=== PATIENT | male | born 1970 | race Caucasian/White ===

== ENCOUNTER 2019-12-12 07:09 | Inpatient (IN) ==
[2019-12-12] MEDS: NS 1,000 ML IV ONE ×2 (07:30→08:30)
[2019-12-12] MEDS ORDERED: NS 1,000 ML IV ONE ×2 (07:42→09:03)
[2019-12-12 07:53] LABS: HEMATOCRIT 51.3 % (42.0-52.0); HEMOGLOBIN 16.2 g/dL (14.0-18.0); MCH 26.8 PG (27-31); MCHC 31.6 g/dL (33-37); MCV 84.8 FL (81-99); MPV 10.2 FL (7.4-10.4); PLT 193 X1000 (130-400); RBC 6.05 XMIL (4.7-6.1); RDW 13.5 % (11.5-14.5); WBC 3.38 X1000 (4.8-10.8)
[2019-12-12 07:54] LABS: BASO# 0.01 X1000 (0.0-0.2); BASO% 0.3 % (0.0-0.8); EOS# 0.03 X1000 (0.0-0.7); EOS% 0.9 % (0.0-10.0); IMM GRAN# 0.02 X1000 (0.0-0.04); IMM GRAN% 0.6 % (0.0-0.5); LYMPH# 0.45 X1000 (1.2-3.4); LYMPH% 13.3 % (20.5-51.1); MONO% 8.9 % (1.7-9.3); NEUT# 2.57 X1000 (1.4-6.5)
[2019-12-12] MEDS ORDERED: NS 500 ML IV ONE (07:54)
--- NOTE | 2019-12-12 08:00 | PROVIDER DOCUMENTATION ---
HPI-Fever - General Chief Complaint: General Adult Stated Complaint: FLU SX Time Seen by Provider: 12/12/19 07:44 Source: patient, family Allergies/Adverse Reactions: Patient Allergies Allergy/AdvReac Type Severity Reaction Status Date / Time No Known Allergies Allergy Verified 12/12/19 07:23 Home Medications: Home Medication List Medication Instructions Recorded Confirmed Last Taken Type NK [No Home Medications] 12/12/19 12/12/19 Unknown History - History of Present Illness-Fever Nature of Presenting Problem: awoke Sun with scratchy throat, cough, nausea, had fever as well. Went to on Tuesday, flu swab ng, but had sx, was dx as flu, placed on Xofluza, decongestant. Continued with fever, body aches on Tue, , fever remained low grade, even with tylenol/advil. Last night he had syncope, vomited 2x, had diarrhea. Presents @ triage with hypotension. No CP, sl SOB. gen body aches.. Nothing makes better nor worse. Review of Systems - Adult - REVIEW OF SYSTEMS - ADULT Constitutional: reports: see HPI Eyes: reports: no symptoms reported Ears, Nose, Mouth & Throat: reports: see HPI Cardiovascular: reports: no symptoms reported Respiratory: reports: see HPI Gastrointestinal: reports: see HPI Genitourinary: reports: no symptoms reported Musculoskeletal: reports: see HPI Integumentary: reports: no symptoms reported Neurological: reports: see HPI Psychiatric: reports: no symptoms reported Endocrine: reports: no symptoms reported Hematologic/Lymphatic: reports: no symptoms reported Allergic/Immunologic: reports: no symptoms reported Past History - Adult - PAST MEDICAL HISTORY-ADULT Review of Records: reports: Medications Reviewed Major Childhood Illnesses: reports: denies history Cardiovascular: reports: denies history Respiratory: reports: denies history Gastrointestinal: reports: denies history Obstetrical/Gynecological: reports: denies history Genitourinary: reports: denies history Musculoskeletal: reports: denies history Neurological: reports: denies history Psychiatric: reports: denies history Endocrine/Immune: reports: denies history - PRIOR SURGERIES/PROCEDURES Surgical/Procedure History: reports: none - SOCIAL HISTORY Smoking: denies Physical Exam-General - PHYSICAL EXAM-ADULT Initial Vital Signs Reviewed: Yes - CONSTITUTIONAL General Appearance: alert, mild distress - EYES Eyes: PERRL/EOMI, pink conjunctivae - HEAD, EARS, NOSE, MOUTH & THROAT HENMT: normocephalic/atraumatic, moist mucous membranes, normal ENT inspection, pharynx normal - NECK Neck: non-tender, full range of motion, supple - RESPIRATORY Respiratory: chest non-tender, no respiratory distress, no accessory muscle use, rales (L>R) - CARDIOVASCULAR Cardiovascular: regular rate, rhythm, no edema, no gallop, no murmur - GASTROINTESTINAL (ABDOMEN) Abdominal Exam: normal bowel sounds, non tender, soft - MUSCULOSKELETAL Back Exam: normal inspection, other (deferred due to BP) Extremity: normal range of motion, non-tender, normal inspection - SKIN Integumentary: normal turgor, warm/dry, other (sl pale) - NEUROLOGIC Neurologic: web design intern II-XII nml as tested, grossly normal, no motor/sensory deficits - PSYCHIATRIC Psych/Mental Status: normal mood/affect, normal thought content, normal thought process, oriented x 3 Progress - PLAN OF CARE/RESULTS Progress/Plan/Lab Results: Vital Signs - 8 hr 12/12/19 07:17 12/12/19 07:24 12/12/19 07:30 Temperature 98.2 F Pulse Rate 94 H 92 H Respiratory Rate 18 22 Blood Pressure 79/42 102/62 O2 Sat by Pulse Oximetry 92 L 92 L 12/12/19 09:30 12/12/19 09:40 12/12/19 09:42 Temperature 101.6 F H Pulse Rate 114 H 111 H Respiratory Rate 26 H 17 Blood Pressure 132/70 O2 Sat by Pulse Oximetry 95 90 L 12/12/19 09:59 Temperature Pulse Rate Respiratory Rate Blood Pressure O2 Sat by Pulse Oximetry 100 Laboratory Results - last 24 hr 12/12/19 12/12/19 12/12/19 07:40 07:40 08:25 WBC 3.38 L RBC 6.05 Hgb 16.2 Hct 51.3 MCV 84.8 MCH 26.8 L MCHC 31.6 L RDW Std Deviation 13.5 Plt Count 193 MPV 10.2 Immature Gran % (Auto) 0.6 H Neut % (Auto) 76.0 H Lymph % (Auto) 13.3 L [place] % (Auto) 8.9 Eos % (Auto) 0.9 Baso % (Auto) 0.3 Immature Gran # (Auto) 0.02 Neut # (Auto) 2.57 Lymph # (Auto) 0.45 L [place] # (Auto) 0.30 Eos # (Auto) 0.03 Baso # (Auto) 0.01 Segmented Neutrophils 71 Lymphocytes 16 L Monocytes 12 H Eosinophils 1 PT INR PTT (Actin FS) Sodium 144 Potassium 4.3 Chloride 103 Carbon Dioxide 19 L Anion Gap 23 BUN 23 H Creatinine 1.9 H Estimated GFR/1.73 m2 38 BUN/Creatinine Ratio 12 Glucose 145 H Calculated Osmolality 293 Calcium 8.7 L Magnesium Total Bilirubin 0.80 AST 53 H ALT 69 H Alkaline Phosphatase 68 Creatine Kinase Creatine Kinase Index CK-MB (CK-2) Troponin T High Sens Total Protein 6.9 Albumin 3.9 Globulin 3.0 Albumin/Globulin Ratio 1.0 Plasma Lactate Influenza A (Rapid) POSITIVE A Influenza B (Rapid) POSITIVE A 12/12/19 12/12/19 12/12/19 08:25 08:25 08:25 WBC RBC Hgb Hct MCV MCH MCHC RDW Std Deviation Plt Count MPV Immature Gran % (Auto) Neut % (Auto) Lymph % (Auto) [place] % (Auto) Eos % (Auto) Baso % (Auto) Immature Gran # (Auto) Neut # (Auto) Lymph # (Auto) [place] # (Auto) Eos # (Auto) Baso # (Auto) Segmented Neutrophils Lymphocytes Monocytes Eosinophils PT 13.2 INR 0.95 PTT (Actin FS) 26.9 Sodium Potassium Chloride Carbon Dioxide Anion Gap BUN Creatinine Estimated GFR/1.73 m2 BUN/Creatinine Ratio Glucose Calculated Osmolality Calcium Magnesium 1.3 L Total Bilirubin AST ALT Alkaline Phosphatase Creatine Kinase 209 H Creatine Kinase Index 1.0 CK-MB (CK-2) 2.03 Troponin T High Sens 10 Total Protein Albumin Globulin Albumin/Globulin Ratio Plasma Lactate Influenza A (Rapid) Influenza B (Rapid) 12/12/19 08:25 WBC RBC Hgb Hct MCV MCH MCHC RDW Std Deviation Plt Count MPV Immature Gran % (Auto) Neut % (Auto) Lymph % (Auto) [place] % (Auto) Eos % (Auto) Baso % (Auto) Immature Gran # (Auto) Neut # (Auto) Lymph # (Auto) [place] # (Auto) Eos # (Auto) Baso # (Auto) Segmented Neutrophils Lymphocytes Monocytes Eosinophils PT INR PTT (Actin FS) Sodium Potassium Chloride Carbon Dioxide Anion Gap BUN Creatinine Estimated GFR/1.73 m2 BUN/Creatinine Ratio Glucose Calculated Osmolality Calcium Magnesium Total Bilirubin AST ALT Alkaline Phosphatase Creatine Kinase Creatine Kinase Index CK-MB (CK-2) Troponin T High Sens Total Protein Albumin Globulin Albumin/Globulin Ratio Plasma Lactate 5.5 H* Influenza A (Rapid) Influenza B (Rapid) Orders Category Date Time Status Admit - [facility] Routine AdmDCTranf 12/12/19 10:31 Active Activity - Strict Bedrest ORDERED Care 12/12/19 10:31 Active Apply Mechanical Device [QM] ORDERED Care 12/12/19 10:31 Active Cardiac Monitoring DIRECTED Care 12/12/19 07:36 Active Cardiac Monitoring DIRECTED Care 12/12/19 07:53 Active DVT/PE Risk Assess/Protocol [QM] ORDERED Care 12/12/19 10:31 Active Elevate Head of Bed DIRECTED Care 12/12/19 10:31 Active Encourage Fluids DIRECTED Care 12/12/19 10:31 Active IV Insertion ORDERED Care 12/12/19 07:53 Completed IV Insertion ORDERED Care 12/12/19 07:55 Completed Intake and Output-Strict ORDERED Care 12/12/19 07:55 Active Intake and Output-Strict Q 8-HR ASSESS Care 12/12/19 10:31 Active Notify MD of + Sepsis Screen NOW Care 12/12/19 07:53 Active Notify Physician As Ordered Care 12/12/19 07:53 Active Nursing- Assist w/ IS as order ORDERED Care 12/12/19 10:36 Active Oxygen Therapy- ED Nursing DIRECTED Care 12/12/19 07:36 Active Repeat Vital Signs .Blood Pressure Care 12/12/19 07:55 Active Repeat Vital Signs .Heart Rate Care 12/12/19 07:55 Active Repeat Vital Signs .Oxygen Saturation Care 12/12/19 07:55 Active Repeat Vital Signs .Respiratory Rate Care 12/12/19 07:55 Active Repeat Vital Signs .Temp Care 12/12/19 07:55 Active Saline Loc NOW Care 12/12/19 07:36 Active Turn, Cough and Deep Breathe Q2HR Care 12/12/19 10:31 Active Vital Signs Order ROUTINE Care 12/12/19 10:31 Active CHEST-PORTABLE [RAD] Routine Exams 12/13/19 06:00 Ordered cxr [CHEST-PORTABLE] [RAD] Stat Exams 12/12/19 07:37 Completed ABG [RESP] Routine Lab 12/12/19 10:45 Ordered BLOOD CULTURE [BLDCUL] Stat Lab 12/12/19 07:55 Ordered CBC WITH DIFF [HEME] Routine Lab 12/13/19 06:00 Ordered CBC WITH DIFF [HEME] Stat Lab 12/12/19 07:40 Completed CK PROFILE [SP CHEM] Stat Lab 12/12/19 08:25 Completed CMP [COMPREHENSIVE METABOLIC PANEL] [CHEM] Stat Lab 12/12/19 08:25 Completed COMPREHENSIVE METABOLIC PANEL [CHEM] Routine Lab 12/13/19 06:[address] Stat Lab 12/12/19 07:40 Completed LACTATE, PLASMA [CHEM] Lab 12/12/19 08:25 Completed LACTATE, PLASMA [CHEM] Lab 12/12/19 11:02 Ordered LACTATE, PLASMA [CHEM] Lab 12/12/19 14:00 Uncollected MAGNESIUM [CHEM] Routine Lab 12/13/19 06:00 Ordered MAGNESIUM [CHEM] Stat Lab 12/12/19 08:25 Completed PROTIME WITH INR [COAG] Stat Lab 12/12/19 08:25 Completed PTT [COAG] Stat Lab 12/12/19 08:25 Completed SPUTUM CULTURE WITH GRAM STAIN [RM] Routine Lab 12/12/19 10:35 Uncollected TROPONIN T HIGH SENSITIVITY Stat Lab 12/12/19 08:25 Completed UA [URINALYSIS] [URINALYSIS] Routine Lab 12/12/19 11:02 Uncollected URINALYSIS W/POSS RFLX CULT [URINALYSIS] Stat Lab 12/12/19 07:53 Uncollected 0.9% Sodium Chloride Inj [Ns] 1,000 ml Med 12/12/19 10:45 Active IV 100 mls/hr 0.9% Sodium Chloride Inj [Ns] 1,000 ml Med 12/12/19 07:42 Discontinued IV 999 mls/hr 0.9% Sodium Chloride Inj [Ns] 1,000 ml Med 12/12/19 09:03 Discontinued IV 999 mls/hr 0.9% Sodium Chloride Inj [Ns] 1,000 ml Med 12/12/19 07:54 Discontinued IV As Directed mls/hr 0.9% Sodium Chloride Inj [Ns] 500 ml Med 12/12/19 07:54 Discontinued IV 999 mls/hr Acetaminophen [Tylenol] Med 12/12/19 10:31 Active 650 mg PO Q4H PRN PRN Albuterol 2.5MG/Ipratrop 0.5MG [Duoneb (A & A)] Med 12/12/19 09:11 Discontinued 3 ml INH NOW ONE Albuterol 2.5MG/Ipratrop 0.5MG [Duoneb (A & A)] Med 12/12/19 10:41 Active 3 ml INH Q4H PRN PRN Albuterol 2.5MG/Ipratrop 0.5MG [Duoneb (A & A)] Med 12/12/19 15:00 Active 3 ml INH [id number] CefEPIME [Maxipime] 1 gm Med 12/12/19 09:10 Discontinued 0.9% Sodium Chloride Inj [Ns] 50 ml IV NOW Furosemide [Lasix] Med 12/12/19 09:17 Discontinued 20 mg IV NOW ONE Ketorolac [Toradol] Med 12/12/19 09:15 Discontinued 15 mg IV NOW ONE Magnesium Sulfate 2 gm/S.w.i. Med 12/12/19 10:43 Active 2 gm in 50 ml IV NOW Piperacillin/Tazobactam [Zosyn] 3.375 gm Med 12/12/19 10:45 Active 0.9% Sodium Chloride Inj [Ns] 50 ml IV Q6H Vancomycin 1 gm/Ns Med 12/12/19 09:04 Discontinued 1 gm in 250 ml IV NOW Aerosol Treatments Routine Ot 12/12/19 09:11 Completed Aerosol Treatments Routine Ot 12/12/19 10:42 Active Aerosol Treatments Stat Ot 12/12/19 09:11 Completed Aerosol Treatments Stat Ot 12/12/19 10:42 Active BIPAP Stat Ot 12/12/19 09:15 Active Incentive Spirometer Routine Ot 12/12/19 10:31 Active Oxygen Device Stat Ot 12/12/19 07:53 Active Pulse Oximetry Routine Ot 12/12/19 10:31 Active EKG [EKG] Stat Ther 12/12/19 07:37 Draft Transfer/Admit Order [TRANSFER] Routine Transfer 12/12/19 10:43 Ordered Result Diagrams: 12/12/19 07:40 12/12/19 08:25 - REASSESSMENT Reassessment #1 Time Reassessed: 10:15 (breathing easier on bipap, skin color better) Status: improving (skin color improving) - EKG 1 Time of EKG reading by physician:: 07:44 EKG Read and Signed by:: Jalil Jack EKG Interpretation (*Must complete 3 of following elements*): Abnormal Rate: 96 Rhythm: NSR QRS: Q Waves present (small, infer leads) ST Wave: depressed (inverted T waves in lat leads) - XRAY 1 XRAY Study: Chest Impression: Abnormal (EXAM: CHEST-PORTABLE HISTORY: cough, sob TECHNIQUE: S tali view of the chest was performed portably. COMPARISON: None. FINDINGS: The cardiomediastinal silhouette is within normal limits. The pulmonary vasculature is not congested. There is a diffuse alveolar infiltrate throughout the left lung. There may be a small effusion. IMPRESSION: Diffuse alveolar infiltrate left lung. Electronically signed by Doretha Person 12/12/2019 8:38 AM 12/12/19 0838 Interpreting Physician: Doretha Person MD Dictated Date/Time: 12/12/19 0837 cc: Jalil Jack MD; Ambika Gomez MD) - CONSULTS/PCP/HOSPITALIST Notification #1 *Consult/PCP/Hospitalist*: Jose Time Discussed: 09:04 Consult Disposition: Will see in ED, Admit Departure - Departure Date of Disposition Decision: 12/12/19 Time of Disposition Decision: 09:04 DIAGNOSIS: Influenza A, Influenza B, Septic shock Pneumonia involving left lung Qualifiers: Pneumonia type: due to unspecified organism Lung location: unspecified part of lung Qualified Code(s): J18.9 - Pneumonia, unspecified organism Respiratory failure Qualifiers: Chronicity: acute Disposition: ADMITTED INPATIENT 09 Certified Medical Emergency: Emergent Condition: Stable Additional Instructions: ED Follow Up Instructions: You have been treated by a care provider in the Emergency Department. These instructions are being provided to you so you can have an understanding of how to care for yourself upon discharge. Upon discharge from the Emergency Department, you are responsible for making arrangements for follow-up care by a physician of your choice. Take all prescribed medications as directed. Return to the Emergency Department immediately for any new or worsening symptoms. You may call the Physician Referral phone number at [phone] to obtain a list of Physicians who are taking new patients. Referrals and Follow-Ups: Ambika Gomez MD [Primary Care Provider] - - Critical Care Note This patient required my direct & personal management of CC.: Yes Total Time (mins): 40 Critical Care Statement: This patient required my direct personal management to treat or rule out processes, the absence of which, could potentiallly result in sudden, clinically significant life or limb threatening deterioration. Attestation - Physician/ JOSHUA Attestation Patient care was provided by Advanced Practice Provider:: No The physician spent face to face time with patient:: Yes Advanced Practice Provider documentation review:: Supervising physician onsite and consulted in the evaluation and care of this patient. The physician did have a face to face encounter with the patient. Sepsis: Tissue Perfusion Assmt - Physical Exam Assessment Date: 12/12/19 Time Assessment Initialized: 09:07 Vital Signs: Last Vital Signs Temp 101.6 F H 12/12/19 09:42 Pulse 111 H 12/12/19 09:40 Resp 17 12/12/19 09:40 BP 132/70 12/12/19 09:40 Pulse Ox 100 12/12/19 09:59 Height 5 ft 8 in Weight 84.368 kg Lung Sounds: rhonchi (bilat) Heart Sounds: Regular Capillary Refill Time: Less Than 2 Seconds Peripheral Pulse Evaluation: radial (R): 2+ Skin Exam: pallor (sl grayish) - Impression Impression: Tissue Perfusion Adequate - Plan Plan: See Orders (breathing sl more labored, will place on BiPap, give small dose lasix)
[2019-12-12 08:10] LABS: INFLUENZA A POSITIVE (NEGATIVE); INFLUENZA B POSITIVE (NEGATIVE)
--- NOTE | 2019-12-12 08:31 | EKG Report ---
Test Performed on : 12/12/2019 07:36:05 AM Test Reason : hypotensive, cp Blood Pressure : / mmHG Vent. Rate : 096 BPM Atrial Rate : 096 BPM P-R Int : 124 ms QRS Dur : 096 ms QT Int : 342 ms P-R-T Axes : 022 -04 038 degrees QTc Int : 432 ms Normal sinus rhythm. Possible Inferior infarct , age undetermined T wave abnormality, consider lateral ischemia Abnormal ECG No previous ECGs available Unconfirmed Result
[2019-12-12 08:36] LABS: INR 0.95; PROTIME 13.2 Seconds (11.0-16.0)
[2019-12-12 08:37] LABS: PTT 26.9 Seconds (22.3-41.8)
[2019-12-12 08:39] LABS: EOS 1 % (1-10); LYMPHS 16 % (21-51); MONO 12 % (1-9); SEGS 71 % (42-75)
--- NOTE | 2019-12-12 08:41 | Diag Imaging Result Doc PS360 ---
EXAM: CHEST-PORTABLE HISTORY: cough, sob TECHNIQUE: Single view of the chest was performed portably. COMPARISON: None. FINDINGS: The cardiomediastinal silhouette is within normal limits. The pulmonary vasculature is not congested. There is a diffuse alveolar infiltrate throughout the left lung. There may be a small effusion. IMPRESSION: Diffuse alveolar infiltrate left lung. Electronically signed by Doretha Person 12/12/2019 8:38 AM
[2019-12-12 08:56] LABS: MAGNESIUM 1.3 mg/dL (1.5-2.7)
[2019-12-12 08:57] LABS: ALBUMIN 3.9 g/dL (3.5-5.0); CALCIUM 8.7 mg/dL (8.8-10.2); CREATININE 1.9 mg/dL (0.7-1.2); POTASSIUM 4.3 mmol/L (3.5-5.1); TOTAL BILIRUBIN 0.8 mg/dL (0.20-1.00); TOTAL PROTEIN 6.9 g/dL (6.3-8.3)
[2019-12-12] MEDS ORDERED: VANCOMYCIN 1 GM/NS 1 GM/250 ML IVPB IV ONE ×2 (09:04→11:45)
[2019-12-12] MEDS ORDERED: MAXIPIME 1 GM in NS 50 ML IV ONE (09:10)
[2019-12-12] MEDS ORDERED: DUONEB (A & A) INH ONE (09:11)
[2019-12-12] MEDS ORDERED: TORADOL IV ONE (09:15)
[2019-12-12] MEDS ORDERED: LASIX IV ONE (09:17)
[2019-12-12 09:54] LABS: CK-MB 2.03 ng/mL (0.0-5.0)
[2019-12-12] MEDS ORDERED: DUONEB (A & A) INH PRN ×2 (10:41→21:08)
[2019-12-12] MEDS ORDERED: MAGNESIUM SULFATE 2 GM/S.W.I. 2 GM/50 ML IVPB IV ONE (10:43)
[2019-12-12] MEDS ORDERED: NS 1,000 ML IV SCH ×2 (10:45→17:50)
[2019-12-12] MEDS: TYLENOL PO PRN ×3 (11:02→22:22)
[2019-12-12] MEDS: ZOSYN 3.375 GM in NS 50 ML IV SCH ×2 (11:09→18:00)
[2019-12-12] MEDS ORDERED: SODIUM CHLORIDE 0.9% INJ SCH (11:15)
[2019-12-12] MEDS ORDERED: PROTONIX IV SCH (11:15)
[2019-12-12 11:20] LABS: BE -7.4 mmoll (-3.0-3.0); BLOOD TYPE ARTERIAL; HCO3-(ACT) 18.9 mmoll (20.0-26.0); METHB 1.2 % (0.0-1.5); O2(CT) 19.5 mL/dL (15.0-23.0); PCO2(98.6) 33 mmHg (35-45); PO2(98.6) 58 mmHg (60-100); SAMPLE BLOOD; SAO2 92.3 % (95.0-100.0); THB 15.6 g/dL (11.5-17.4); pH(98.6) 7.33 (7.35-7.45)
[2019-12-12 11:23] LABS: MODALITY BI PAP; O2HB 89.3 % (95.0-99.0)
[2019-12-12 11:24] LABS: ALLEN TEST YES
[2019-12-12 11:24] LABS: URINE SOURCE CLEAN CATCH
[2019-12-12] MEDS ORDERED: ZOFRAN IV PRN ×2 (11:27→21:04)
[2019-12-12] MEDS ORDERED: VANCOMYCIN IV PER PHARMACY MISC SCH (11:30)
[2019-12-12 11:46] LABS: BILIRUBIN URINE NEGATIVE (NEGATIVE); BLOOD URINE TRACE (NEGATIVE); CLARITY SLIGHTLY CLOUDY (CLEAR); COLOR YELLOW; GLUCOSE URINE NEGATIVE (NEGATIVE); KETONE URINE NEGATIVE (NEGATIVE); LEUKOCYTES URINE NEGATIVE (NEGATIVE); NITRITE URINE NEGATIVE (NEGATIVE); PROTEIN URINE TRACE mg/dL (NEGATIVE); URINE BACTERIA NEGATIVE /HFP; URINE CAST NONE SEEN /LPF; URINE CRYSTAL NONE SEEN /HPF; URINE EPITHELIAL CELLS <10 /HPF (<10); URINE YEAST NONE SEEN /HPF; UROBILINOGEN URINE 0.2 EU/dL (0.2-1.0)
--- NOTE | 2019-12-12 14:35 | HISTORY AND PHYSICAL ---
CHIEF COMPLAINT: Flu-like symptoms. HISTORY OF PRESENT ILLNESS: Mr. Higgins is a 49-year-old male with no significant past medical history, who presented to the ER today with complaints of flu-like symptoms for the past 3 days. Patient was actually seen at an urgent care in [place] on 12/10/19 and was given a dose of Xofluza, a shot of Rocephin and Decadron. The patient has continued to have fever, chills, malaise, nausea with vomiting, cough, congestion, dyspnea, hemoptysis, lethargy and a syncopal episode this morning. The patient does deny any chest pain, palpitations, leg edema, orthopnea, PND, diarrhea, constipation, dysuria, hematuria, neck pain, melena or any other pertinent symptoms at the time. REVIEW OF SYSTEMS: A 10 point review of systems has been obtained and all are negative except as stated above in the HPI. PAST MEDICAL HISTORY: None. PAST SURGICAL HISTORY: None. Family history: Mom had diabetes and she from a PE after an orthopedic surgery. Father, patient believes his father from complications of pneumonia. SOCIAL HISTORY: The patient works at [employer]. He quit smoking greater than 15 years ago. He denies any alcohol or illicit drug use. [facility] [place]. ALLERGIES: No known drug allergies. HOME MEDICATIONS: No routine medications. The patient was given a dose of the Deconex DM 17.5/400 to take 1 tablet q.6 hours. He was given this at the [place] [facility] on 12/10/2019. PHYSICAL EXAM: VITAL SIGNS: Temperature 101.6, heart rate 94, blood pressure one reading was 79/42, another reading 132/72. O2 saturations 90 on nasal cannula 2 L. GENERAL: This is a 49-year-old male. He is well-nourished and well- developed. He is in much distress at present time. He is sterling in color. HEENT: Pupils are very red. They are reactive to light. Head is atraumatic and normocephalic. Mucous membranes are dry. NECK: Supple with no lymphadenopathy. Trachea is midline. No JVD. CARDIOVASCULAR: Regular rate and rhythm. No murmurs, gallops or rubs appreciated. RESPIRATORY: There is expiratory wheezing throughout. Lung sounds are very coarse. There is accessory muscle usage noted. Respirations are labored. There is equal chest excursions. Respirations are diminished at the bases. There is rhonchi noted in the upper field. The patient is coughing up blood-tinged sputum. ABDOMEN: Rounded, nontender. Bowel sounds are present x4. GENITOURINARY: There is no suprapubic tenderness noted. The patient is able to void without difficulty. NEUROLOGIC: The patient is awake, alert, and oriented. There are no deficits noted. MUSCULOSKELETAL: Full distal strength is noted. No abnormalities. No deformities. EXTREMITIES: No clubbing or edema. Patient is sterling in color. DP and PT pulses are present and palpable. SKIN: Warm and moist and diaphoretic. Skin appears sterling in color throughout. LABS AND DIAGNOSTICS: White blood cell count 3.38, hemoglobin 16.2, hematocrit 51.8, platelet count 193,000. Sodium 144, potassium 4.3, carbon dioxide 19, BUN is 23, creatinine 1.9, estimated GFR is 38, glucose is 145, calcium 8.7, magnesium 1.3. Troponin T is 10, plasma lactate 5.5. Influenza A positive. Influenza B positive. Chest x-ray shows diffuse alveolar infiltrate in the left lung. EKG shows normal sinus rhythm at a rate of 96 beats per minute. ASSESSMENT AND PLAN: 1. Acute respiratory distress with hypoxia. We are going to admit this patient to the ICU at [facility], patient has been placed on BiPAP in the ER. We are going to obtain ABGs 30 minutes after placing the patient on a BiPAP. I have also ordered DuoNeb treatments q.4 hours and p.r.n., vital signs routine and repeat chest x-ray in the morning. The patient was given a dose of Lasix in the ER. 2. Aspiration pneumonia to the left lung with Sepsis. I have placed this patient on vancomycin and Zosyn. I have ordered a repeat chest x-ray for in the morning. Patient is on DuoNeb treatments q.4 hours and p.r.n. I have ordered a sputum culture. Patient is having blood- tinged sputum. We are going to repeat his lactates per protocol. He was given 3 boluses in the ER. We will continue IV fluids while in the ICU, and repeat labs in the morning. 3. Influenza A and B. Patient did received a dose of Xofluza on 12/10/2019. He did have a negative influenza test at that time. He did go ahead and received treatment. He does have a positive influenza test at this time. We will not treat with anything as the patient has already received treatment. I have ordered Tylenol prn for his fevers. I will order Zofran prn for his nausea. 4. Volume depletion. The patient was given several L of fluid in the ER. We will continue IV fluid hydration while in ICU. We will repeat labs in the morning. 5. Acute kidney injury. This is likely due to #4. We will give IV fluid hydration and repeat labs in the morning. 6. Hypomagnesemia. I did give order 2 g of magnesium sulfate IV x1 dose. I will recheck his magnesium level in the morning. We will supplement as needed. 7. Gastrointestinal prophylaxis. I placed this patient on Protonix 40 mg IV q.24 hours. 8. Deep venous thrombosis prophylaxis. I place this patient with TEDs and SCDs. The patient did have some blood-tinged sputum quite a large amount in the ER. I will not place him on any anticoagulation at this time. Dictated by DICK Green for Binu Garcia MD cc: MD Stephan Landry MD MTDD
[2019-12-12] MEDS: DUONEB (A & A) INH SCH (16:16)
[2019-12-12] MEDS ORDERED: SODIUM CHLORIDE 0.9% 10 ML ONE (16:54)
[2019-12-12] MEDS: PROTONIX IV SCH (17:00)
[2019-12-12] MEDS: NS 1,000 ML IV SCH (18:34)
[2019-12-12] MEDS ORDERED: LEVOPHED 8 MG in D5 1/2 NS 250 ML IV SCH ×2 (19:15→22:00)
[2019-12-13] MEDS: NS 1,000 ML IV SCH ×3 (00:20→08:50)
[2019-12-13] MEDS: ZOSYN 3.375 GM in NS 50 ML IV SCH ×2 (00:20→06:08)
[2019-12-13] MEDS: DUONEB (A & A) INH SCH ×5 (03:15→21:30)
--- NOTE | 2019-12-13 04:36 | HISTORY AND PHYSICAL ---
ADDENDUM: Patient seen and examined while in the ER. Full note dictated and discussed with nurse practitioner. Patient presented to the hospital after having a fever for the past couple of days, cough. Symptoms dramatically worsened over the last 24 hours. Currently he is on BiPAP. He was treated earlier for the flu. We are going to admit him to the hospital, transition him to [facility] for pulmonology assistance. cc: Binu Garcia MD
[2019-12-13 05:23] LABS: ALLEN TEST YES; BE -12.5 mmoll (-3.0-3.0); BLOOD TYPE ARTERIAL; HCO3-(ACT) 15.1 mmoll (20.0-26.0); METHB 0.8 % (0.0-1.5); O2(CT) 28.7 mL/dL (15.0-23.0); O2HB 97.4 % (95.0-99.0); PCO2(98.6) 22 mmHg (35-45); PO2(98.6) 101 mmHg (60-100); SAMPLE BLOOD; SAO2 99.3 % (95.0-100.0); SRATE 14 BPM
[2019-12-13 05:28] LABS: MODALITY BI PAP
[2019-12-13 06:29] LABS: BASO# 0.02 X1000 (0.0-0.2); BASO% 0.6 % (0.0-0.8); EOS# 0.06 X1000 (0.0-0.7); EOS% 1.9 % (0.0-10.0); HEMOGLOBIN 13.2 g/dL (14.0-18.0); IMM GRAN# 0.16 X1000 (0.0-0.04); LYMPH% 9.4 % (20.5-51.1); MCH 26.9 PG (27-31); MCHC 32.2 g/dL (33-37); MCV 83.7 FL (81-99); MONO# 0.13 X1000 (0.11-0.59); MONO% 4.1 % (1.7-9.3); MPV 10.6 FL (7.4-10.4); NEUT# 2.53 X1000 (1.4-6.5); PLT 147 X1000 (130-400); RDW 13.8 % (11.5-14.5)
--- NOTE | 2019-12-13 06:50 | Diag Imaging Result Doc PS360 ---
CHEST-PORTABLE - 12/13/2019 INDICATION: Pneumonia COMPARISON: 12/12/2019 FINDINGS: There has been significant increase in the density of the multilobar pneumonia in the left lung base, mainly in the left lower lobe. Heart size remains normal. No pneumothorax or large pleural effusion. IMPRESSION: Dense pneumonia in the left lower lobe. Electronically signed by Helder Armenta 12/13/2019 6:47 AM
[2019-12-13 07:27] LABS: ALB/GLOB RATIO 0.8; ALBUMIN 2.1 g/dL (3.5-5.0); CREATININE 2.6 mg/dL (0.7-1.2); POTASSIUM 4.1 mmol/L (3.5-5.1); TOTAL BILIRUBIN 1.9 mg/dL (0.20-1.00); TOTAL PROTEIN 4.9 g/dL (6.3-8.3)
[2019-12-13 07:48] LABS: CALCIUM 6.4 mg/dL (8.8-10.2)
[2019-12-13] MEDS ORDERED: CALCIUM GLUCONATE 2 GM in NS 100 ML IV ONE (07:56)
[2019-12-13] MEDS ORDERED: MAGNESIUM SULFATE 4 GM/S.W.I. 4 GM/100 ML IVPB IV ONE (08:38)
[2019-12-13] MEDS: ZYVOX 600 MG/D5W 600 MG/300 ML IVPB IV SCH ×2 (08:50→19:40)
[2019-12-13] MEDS ORDERED: TAMIFLU PO SCH (09:00)
--- NOTE | 2019-12-13 10:21 | Diag Imaging Result Doc PS360 ---
EXAM: CT THORAX W/O CONTRAST 12/13/2019 HISTORY: pna, suspected ARDS TECHNIQUE: This exam was performed using automated exposure control, adjustment of mA or kV according to patient size, and/or use of iterative reconstruction technique. COMMENT: There are no previous studies available for comparison. There is a left pleural effusion. There is dense alveolar opacification of the left lower lobe with air bronchograms. There is patchy groundglass opacity in the left upper lobe with some areas of denser consolidation more inferiorly and posteriorly in the lingula. There is also patchy alveolar opacity in the right lower lobe with air bronchograms with groundglass opacity in a patchy distribution in the right upper lobe and middle lobe. There are nonspecific appearing prevascular paratracheal and aorticopulmonary window nodes. There is subcarinal adenopathy. The aorta is not distended. The regional skeleton appears to be intact. IMPRESSION: Pneumonia, particularly in the left lower lobe. Electronically signed by Gianluca Carter 12/13/2019 10:19 AM
--- NOTE | 2019-12-13 11:13 | PROGRESS NOTE ---
DATE: 12/13/2019 SUBJECTIVE: Patient reports breathing better. He is, upon my examination, using a BiPAP mask. OBJECTIVE: Vital Signs: Temperature 98.5 degrees, heart rate 92, respiratory rate 21, blood pressure 110/75, O2 saturation 98% on BiPAP at FiO2 of 60%. General Examination: This is a 49- year-old, male, lying in bed, in no acute distress, wearing a BiPAP mask. Cardiovascular Examination: S1 and S2 heard. No murmurs, gallops, or rubs. Regular rate and rhythm. Respiratory Examination: Expiratory wheezing all over both pulmonary jenkins and also rhonchi all over as well. There is some accessory muscle usage noted. Respirations are not labored. Abdomen: Soft, nontender to palpation. Bowel sounds present. No organomegaly. Extremities: No clubbing, cyanosis, or edema. Peripheral pulses present in both legs. Neurological Examination: The patient is alert and oriented x3. Moves 4 extremities. Laboratory Data: White cell count 3.20, hemoglobin 13.2, hematocrit 41.0, platelets 147,000. ABG that shows pH 7.30, with pCO2 of 22, PO2 of 105, lactate 4.2. CMP reveals calcium 6.4, magnesium 1.3, creatinine 2.6. ASSESSMENT AND PLAN: 1. Acute respiratory failure with hypoxemia. The patient was admitted to the hospital because of this condition. He is requiring a BiPAP mask. At this point, we will continue with BiPAP. The arterial blood gas from today shows still respiratory acidosis. He continues to be on DuoNebs every 4 hours scheduled. We will continue to monitor. 2. Aspiration pneumonia in the left lung with sepsis. The patient has been on vancomycin and Zosyn. Because of renal dysfunction, vancomycin has been stopped and we are going to change it for Zyvox. We will continue with breathing treatments. Blood cultures and sputum culture are pending. 3. Influenza A and B. Patient received Xofluza 3 days ago. Personally, because there is not too much information about the efficacy of this drug, I prefer to go ahead and start Tamiflu 75 mg by mouth twice a day for 5 days. 4. Acute kidney injury. That continues to get worse. The patient has been receiving intravenous fluids. We had to stop vancomycin and we will be very careful with nephrotoxic drugs. We will consult Dr. Gladish. We will check intakes and outputs strictly. 5. Hypomagnesemia. Magnesium is still low. We will replenish that today. 6. Gastrointestinal prophylaxis. We will continue with Protonix. 7. Deep vein thrombosis prophylaxis with sequential compression devices. cc: Stephan Burt MD
[2019-12-13] MEDS: ZOSYN 2.25 GM in NS 50 ML IV SCH ×2 (12:27→17:02)
--- NOTE | 2019-12-13 12:36 | Diag Imaging Result Doc PS360 ---
US RENAL 2 (RETROPER) COMPLETE - 12/13/2019 INDICATION: montez/arf TECHNIQUE: COMPARISON: None FINDINGS: The exam is challenging due to the patient's condition. The kidneys are normal in echotexture. No hydronephrosis or mass. The right kidney measures 10.5 x 6 x 4.7 cm. Cortex measures 8 mm. The left kidney measures 10.7 x 4.4 x 5.7 cm. Cortex measures 9 mm. The urinary bladder is normal. IMPRESSION: Negative exam. Electronically signed by Helder Armenta 12/13/2019 12:33 PM
--- NOTE | 2019-12-13 13:14 | PROVIDER PROGRESS NOTE ---
Progress Note The patient has been seen and examined. A full dictation to follow.
[2019-12-13] MEDS: SODIUM BICARBONATE 8.4% 150 MEQ in D5W 1,000 ML IV SCH (13:34)
--- NOTE | 2019-12-13 14:27 | NEPHROLOGY CONSULTATION ---
DATE: 12/13/2019 REASON FOR ADMISSION: Flulike symptoms associated with lethargy, near syncopal episode. REASON FOR CONSULTATION: Acute kidney injury. CONSULTING PHYSICIAN: Stephan Burt MD. HISTORY OF PRESENT ILLNESS: Mr. Higgins is a 49-year-old white male who has no medical history of hypertension or kidney disease, who states that he presented to the Urgent Care in [place] on 12/10/2019 for flulike symptoms. He was given Xofluza. He was also given a shot of Rocephin and Decadron. His family states that he started feeling better the day after and as of Tuesday evening going into Tuesday his symptoms had worsened so that by Tuesday he had developed fever, chills, worsening malaise. He had nausea and vomiting, congested cough that had a large amount of blood for hemoptysis. He had a near syncopal episode the morning the prior to coming in to the emergency room. In the emergency room, it was found that he was hypoxic. He was placed on a BiPAP, currently remains on this BiPAP at 60%. His creatinine initially was at 1.9. Creatinine now is up to 2.6. The patient states that he does not follow with a primary care, has seen Dr. Gomez x1, he thinks he did have laboratory at that time. At this time, he states that he does have some chest pressure midsternal mostly when he takes his BiPAP off. He denies nausea at the time. He denies any neck pain. No dysuria. No diarrhea. No melena. No fever during hospital stay documented. PAST MEDICAL HISTORY: None. He takes only takes home medications [id number] as needed. PAST SURGICAL HISTORY: None. FAMILY HISTORY: Mother had diabetes, from a PE after an orthopedic surgery. Father after complications of pneumonia. Other family members are negative for heart disease or kidney disease. SOCIAL HISTORY: He is . He is currently employed at [employer]. Previous smoker, stopped smoking 15 years ago. Denies any current alcohol or illicit drug use in the past or current. ALLERGIES: Listed as no known drug allergies. HOME MEDICATIONS: He was given Deconex DM 1 tablet q.6 hours along with Xofluza which he was continuing which has now been stopped. REVIEW OF SYSTEMS: Review of systems x10 with pertinent positives listed above in the HPI. VITAL SIGNS: His most recent vital signs, his last temperature 98.7, blood pressure 110/73, heart rate is tachycardic 101, his respirations are tachypneic at 30. He is currently on 60% BiPAP, last recorded saturation is 93%. He has an IV infusing of normal saline at 150 mL/hour. He did get a calcium gluconate dose after admission. He has also received vancomycin and Zosyn. In the emergency room, he was given a dose of Toradol for general aches and pains now currently receiving Zosyn and Zyvox. LABORATORY: Sodium is 134, potassium 4.1, chloride 101, CO2 is 11, BUN 39, creatinine 2.6, glucose is 97. His anion gap is 22. Calcium 6.4. Magnesium 1.3. Albumin 2.1. His corrected calcium was 7.92 prior to his calcium gluconate. White count 3.2, hemoglobin 13.2, hematocrit 41, platelet count 147. ABGs: pH 7.30, CO2 22, pO2 101, bicarbonate 15.1 on 60% BiPAP. He had a lactate of 4.2, a plasma lactate of 7.4 which is now rising since his admission of 6.6. Blood cultures are showing gram-positive cocci. Renal ultrasound has been completed showing ultrasound right measuring 10.5, left measuring 10.7, no hydronephrosis or mass. Urine cultures are currently pending. He is positive for influenza A and B on serology. PHYSICAL EXAMINATION: General: This is a 49-year-old white male. He is currently sitting up in bed. He remains on BiPAP. He appears chronically ill, no acute distress. Skin: Warm and dry. HEENT: Normocephalic, atraumatic. Conjunctiva is pale, pink. Mucous membranes are dry. BiPAP in place. Neck: Supple. Trachea midline. No JVD upon evaluation in the upright position. Cardiovascular: He is regular rate and rhythm. He is tachycardic. No murmur or gallop appreciated. Lungs: He has expiratory wheezes throughout. Breath sounds are coarse. He is using accessory muscles. He has rhonchi noted in the upper right field more so than the left. Abdomen: Large, round, soft, nontender. Positive bowel sounds. Genitourinary: Not inspected. The patient has been voiding adequate amount documented. Neurological: He is awake and alert. He is a good historian though difficult to talk with the BiPAP in place. The family has assisted with review of systems. Extremities: Have no edema. No clubbing or cyanosis. The patient has palpable pulses. Integumentary: Warm and dry. No rashes or lesions. ASSESSMENT AND PLAN: 1. Acute kidney injury. The patient's baseline creatinine is unknown. Initial creatinine was 1.9, now up to 2.6. Renal ultrasound is essentially negative. He remains on intravenous fluids of normal saline at 150 mL/hour. We have renally doses his Zosyn, his Zyvox is stable. They have stopped his vancomycin. He did receive Toradol upon admission. The patient is currently septic. He is tachycardic. We will continue to monitor strict I's and O's, monitoring his laboratories in the next 24-48 hours. 2. Electrolytes. These are stable. 3. Acidosis. The patient remains in respiratory acidosis with metabolic acidosis and a positive anion gap acidosis. This is secondary to number 1 in association with aspiration pneumonia to the left lung. He is currently receiving normal saline at 150 mL/hour after fluid volume resuscitation for sepsis. We will change this over to D5W with 3 amps of sodium bicarbonate to run at a 150 mL/hour. 4. Anemia. This is in target. 5. Sepsis. The patient is currently on renal dosed Zosyn and Zyvox. Blood cultures have come back with gram-positive cocci. Followed by Primary Care. 6. Positive influenza A and B. The patient is currently on Tamiflu. We will decrease this dosing 30 mg b.i.d. per renal dosing from 75 mg b.i.d. He remains on isolation precautions for droplets. I would like to thank you for allowing us to follow with this patient. Dictated by DICK Montoya for Rodriguez Amin MD Face to face encounter, data reviewed, discussed with Beto Correia on 12/13/19. I agree with the above assessment and plan of care. cc: DICK Montoya MD [facility]
[2019-12-13 16:35] LABS: UR CREAT RANDOM 55.4 mg/dL (14-26)
[2019-12-13 16:39] LABS: UR PROT RANDOM 40.6 mg/dL
[2019-12-13] MEDS: PROTONIX IV SCH (17:02)
[2019-12-13] MEDS: SODIUM CHLORIDE 0.9% INJ SCH (17:02)
[2019-12-13] MEDS ORDERED: VANCOMYCIN 1,650 MG in NS 250 ML IV SCH ×4 (18:00)
[2019-12-13] MEDS: TYLENOL PO PRN (19:41)
[2019-12-13] MEDS: TAMIFLU PO SCH (20:00)
[2019-12-14] MEDS: SODIUM BICARBONATE 8.4% 150 MEQ in D5W 1,000 ML IV SCH (00:16)
[2019-12-14] MEDS: ZOSYN 2.25 GM in NS 50 ML IV SCH ×4 (00:16→18:12)
--- NOTE | 2019-12-14 00:26 | PULMONOLOGY CONSULTATION ---
DATE: 12/13/2019 REQUESTING PROVIDER: Dr. Stephan Grayson. REASON FOR CONSULTATION: Acute respiratory failure, flu, pneumonia. HISTORY OF PRESENT ILLNESS: This is a 49-year-old, male with no significant medical history. He presented to the ER yesterday morning with scratchy throat, cough, nausea, fever and congestion. Initial workup in the ER revealed acute hypoxic respiratory failure, aspiration pneumonia, flu A and B and acute kidney injury. He has been admitted to the ICU for further evaluation and management. The patient has been started on the BiPAP since admission. Currently, he still remains on BiPAP at 40%, 16/8 and he tolerates well. The patient states he is feeling a lot better. He, apparently, went to an urgent care on the 12/10/2019 and was treated with Xofluza, Rocephin shot and Decadron, but without improvement. He continued having fever, chills, nausea, vomiting, cough, chest congestion, dyspnea, hemoptysis, and lethargy. He also developed some chest pressure since admission. He did develop fever yesterday afternoon up to 103.1, but since then, fever has been under control. He has no more nausea or vomiting, but overall he has been feeling a lot better. He has no chest pain, palpitation, pedal edema, orthopnea, paroxysmal nocturnal dyspnea, bowel habit change, or urination discomfort. Urine clarity at the bedside is dark yellow and mildly cloudy. PAST MEDICAL HISTORY: None. PAST SURGICAL HISTORY: None. SOCIAL HISTORY: The patient is a former smoker and quit smoking over 15 years ago. He has no history of alcohol or illicit drug use. He has no chemical dust exposure in the work environment. FAMILY HISTORY: Positive for diabetes, pulmonary embolism. ALLERGIES: No known drug allergies. REVIEW OF SYSTEMS: A 10-point review of systems was conducted and the pertinent is listed within the HPI, otherwise noncontributory. PHYSICAL EXAMINATION: Vital Signs: Temperature 98.9, blood pressure 109/71, pulse 92, respiratory rate 29, oxygen saturation 95% on BiPAP, 40%, 16/8. General: Fair nourished, well developed, on a BiPAP mask at this time, lying in bed with no acute distress noted. HEENT: Atraumatic, normocephalic. Trachea midline. Wearing a BiPAP mask. Respiratory: Mildly tachypneic. Symmetrical excursion. Auscultation revealed diminished breathing sounds bilaterally and mild early inspiratory crackles bilaterally. Cardiovascular: Regular rate and rhythm with S1, S2 noted. Gastrointestinal: Abdomen soft, rounded, nontender. Normoactive bowel sounds in all 4 quadrants. Extremities: No pedal edema. No cyanosis. No clubbing. Neurologic: Alert, oriented x3. Speech fluent. Follows commands. LAB DATA: White blood cells 3.20, hemoglobin 14.2, hematocrit 41.0, platelet a 147,000. Sodium 134, potassium 4.1, chloride 101, carbon dioxide 11, BUN 39, creatinine 2.6. Glucose 97, calcium 6.4. ABG, pH 7.30, pCO2 of 22, PO2 of 101, HCO3 of 15.1, base excess -12.5, oxyhemoglobin 97.4, lactate 4.20 on the BiPAP with FiO2 60% and pressure 16/8. IMAGING DATA: Chest CT with without contrast today showed pneumonia, particularly in the left lower lobe with left pleural effusion and cardiorenal adenopathy. ASSESSMENT: This is a 49-year-old, male with no significant medical history. He has been admitted since 12/12/2019 with acute hypoxic respiratory failure, pneumonia, sepsis, influenza A and B and acute kidney injury. 1. Acute hypoxic respiratory failure. 2. Dense alveolar opacification of the left lower lobe with air bronchograms, patchy ground glass opacity in the left upper lobe with some areas of dense consolidation more inferiorly and posteriorly in the lingula. Patchy alveolar opacity in the right lower lobe with air bronchograms with ground-glass opacity in a patchy distribution in the right upper lobe and middle lobe, and a left pleural effusion as well as cardiorenal adenopathy. 3. Influenza A and B. 4. Sepsis syndrome. 5. Acute kidney injury, worsening today. PLAN: 1. We titrated supplemental oxygen with BiPAP to patient needs per clinical protocols. 2. Antibiotics, including Zyvox and Zosyn were ordered. 3. Tamiflu was ordered. 4. Bronchodilators were ordered. 5. Follow up with CBC, hepatic function, urine culture, sputum culture, blood cultures and chest x-ray. 6. Further recommendations pending hospital course. Thank you for the courtesy of this consult. Dr. Landis did the examination, evaluation, management and orders. DICK did the dictation for Dr. Landis according to his direction. Total evaluation time in minutes: 36. Dictated by DICK Jones for Virginie Landis MD cc: DICK Jones MD [facility]
[2019-12-14] MEDS ORDERED: MORPHINE IV ONE (00:47)
[2019-12-14] MEDS: DUONEB (A & A) INH SCH ×4 (03:15→21:45)
[2019-12-14 06:11] LABS: ALB/GLOB RATIO 0.5; ALBUMIN 1.9 g/dL (3.5-5.0); BASO# 0.03 X1000 (0.0-0.2); BASO% 0.2 % (0.0-0.8); CALCIUM 7.1 mg/dL (8.8-10.2); CREATININE 3.4 mg/dL (0.7-1.2); EOS# 0.01 X1000 (0.0-0.7); EOS% 0.1 % (0.0-10.0); HEMATOCRIT 42.8 % (42.0-52.0); HEMOGLOBIN 14.3 g/dL (14.0-18.0); IMM GRAN# 0.93 X1000 (0.0-0.04); IMM GRAN% 7.6 % (0.0-0.5); LYMPH# 0.69 X1000 (1.2-3.4); LYMPH% 5.6 % (20.5-51.1); MAGNESIUM 2.8 mg/dL (1.5-2.7); MCH 26.7 PG (27-31); MCHC 33.4 g/dL (33-37); MONO# 0.39 X1000 (0.11-0.59); MONO% 3.2 % (1.7-9.3); MPV 10.5 FL (7.4-10.4); NEUT# 10.19 X1000 (1.4-6.5); NEUT% 83.3 % (42.2-75.2); PLT 119 X1000 (130-400); POTASSIUM 3.6 mmol/L (3.5-5.1); RBC 5.35 XMIL (4.7-6.1); RDW 13.4 % (11.5-14.5); TOTAL BILIRUBIN 1.53 mg/dL (0.20-1.00); TOTAL PROTEIN 5.7 g/dL (6.3-8.3); WBC 12.24 X1000 (4.8-10.8)
[2019-12-14 06:20] LABS: ALLEN TEST YES; BE -5.5 mmoll (-3.0-3.0); BLOOD TYPE ARTERIAL; HCO3-(ACT) 20.5 mmoll (20.0-26.0); METHB 0.8 % (0.0-1.5); O2(CT) 17.6 mL/dL (15.0-23.0); O2HB 92.3 % (95.0-99.0); PCO2(98.6) 27 mmHg (35-45); PO2(98.6) 79 mmHg (60-100); SAMPLE BLOOD; SAO2 94.7 % (95.0-100.0); THB 13.5 g/dL (11.5-17.4); pH(98.6) 7.42 (7.35-7.45)
[2019-12-14 06:21] LABS: MODALITY BI PAP
[2019-12-14 07:59] LABS: LYMPHS 5 % (21-51); MONO 3 % (1-9); SEGS 92 % (42-75)
--- NOTE | 2019-12-14 08:10 | PROGRESS NOTE ---
DATE: 12/14/2019 SUBJECTIVE: Patient reports feeling okay. According to nursing staff, he has been awake almost all night long, using BiPAP day and night. He requested to have something different to provide oxygen. Almost all night long, his respiratory rate has been between 20 and 25. No other issues noted as per nursing staff overnight. OBJECTIVE: Vital Signs: Temperature 98.9 degrees, heart rate 92, respiratory rate 26, blood pressure 127/84, O2 saturation 92% on BiPAP. General: This is a 49-year-old male, lying in bed, in no acute distress. He is wearing BiPAP mask. Cardiovascular: S1, S2 heard. No murmurs, gallops, or rubs. Regular rate and rhythm. Respiratory Exam: Coarse breath sounds and end-expiratory wheezing noted in both pulmonary jenkins. Patient is not using any accessory muscles or having work of breathing. Abdomen: Soft, nontender to palpation. Bowel sounds present. No organomegaly. Extremities: No clubbing, cyanosis, or edema. Peripheral pulses present in both legs. Neurological: Patient is alert and oriented x3. Moves 4 extremities. LABORATORY DATA: Pending at the time of my dictation. CT of the chest done yesterday showed pneumonia particularly in the left lower lobe. Renal ultrasound showed negative exam. ASSESSMENT AND PLAN: 1. Acute hypoxemic respiratory failure. Patient continues to require BiPAP. Apparently patient prefers to use BiPAP because he somehow is afraid that he will not receive the oxygen that he needs. In any case, I think he is an ideal candidate for high-flow nasal cannula. His main problem is his oxygenation and no problems with ventilation. We will order a stat ABG to see how he is doing. We will continue also with DuoNeb every 4 hours as scheduled. We will continue to monitor this patient closely in the intensive care unit. Pulmonary is following this patient. We will follow recommendations. 2. Aspiration pneumonia of the left lung with sepsis. The patient is on Zyvox. He is on Zosyn renally doses by the Nephrology team. Will continue to monitor/ We do not have results of labs this morning. The initial report from blood cultures is positive for gram-negative cocci. Will continue course with Zyvox and the rest of the antibiotics until we have the final sensitivity. 3. Influenza A and B. Patient continues to receive Tamiflu 75 mg p.o. twice daily. 4. Acute kidney injury. We do not have results from today but we have called Nephrology. The patient continues to be on IV fluid. Home medications the patient is receiving has been renally dosed. We appreciate the input from Dr. Amin. Renal ultrasound was negative. We will continue to monitor renal profile daily. 5. Hypomagnesemia. Magnesium has been repleted yesterday. We will see what it shows today. 6. Gastrointestinal prophylaxis. Patient is on Protonix. 7. Deep vein thrombosis prophylaxis. Patient is on SCD. 8. Disposition. We will continue to monitor this patient closely in the intensive care unit. cc: Stephan Burt MD
[2019-12-14] MEDS: ZYVOX 600 MG/D5W 600 MG/300 ML IVPB IV SCH ×2 (08:47→20:34)
[2019-12-14] MEDS: TAMIFLU PO SCH ×2 (08:48→20:35)
[2019-12-14] MEDS: MORPHINE IV PRN ×3 (09:26→20:36)
--- NOTE | 2019-12-14 10:30 | Diag Imaging Result Doc PS360 ---
EXAM: CHEST-PORTABLE HISTORY: abnormal exam TECHNIQUE: Single view COMPARISON: 12/13/2019 FINDINGS: There are dense infiltrates throughout the left lung with smaller infiltrates in the right lung. The heart remains enlarged. There is a small left pleural effusion. IMPRESSION: Worsening pneumonia Electronically signed by Alfonzo Lopez 12/14/2019 10:27 AM
[2019-12-14] MEDS ORDERED: SODIUM BICARBONATE 8.4% 150 MEQ in D5W 1,000 ML IV SCH (13:22)
--- NOTE | 2019-12-14 17:31 | PULMONOLOGY PROGRESS NOTE ---
DATE: 12/14/2019 SUBJECTIVE: The patient is awake, alert and conversant. He is currently on a face mask. The BiPAP does cause some sense of smothering. OBJECTIVE: The patient has been afebrile for the last 24 hours. Blood pressure 133/85, heart rate 85, respiratory rate 23, oxygen saturation 88%. HEENT: Pupils are equal and reactive. Oropharynx appears clear. Neck is supple. Chest reveals rhonchi bilaterally. Cardiac exam: S1, S2. Increased rate. Abdomen is soft. Extremities are without edema. LABORATORY DATA: Two out of 2 blood cultures are positive for gram-positive cocci. White blood count 12.2, hemoglobin 14.3, platelet count 119,000. Sodium 131, potassium 3.6, chloride 93, bicarbonate 17, BUN 39, creatinine 3.4. Arterial blood gas reveals a pH of 7.42, pCO2 of 27, pO2 of 79 with a lactate of 3.1. IMPRESSION: A 49-year-old admitted to the hospital with: 1. Positive nasal swab for influenza both A and B. 2. Positive blood cultures. 3. Septic shock without need for vasopressors. 4. Acute hypoxemic respiratory failure. 5. Resolving lactic acidosis. 6. Relative leukopenia with recovering white blood count. 7. Bacteremia. 8. Acute hypoxemic respiratory failure. 9. Acute renal failure. PLAN: 1. Continue broad-spectrum antibiotics pending results of blood cultures. 2. Continue bronchial hygiene. 3. Continue oxygen, as BiPAP as needed for hypoxemic respiratory failure. 4. Nephrology management per Dr. Rodriguez Amin. 5. Continue ICU monitoring. The patient's lactic acidosis is resolving, his white blood count is recovering, but he remains critically ill and remains at risk for intubation and mechanical ventilation. cc: Gal Alaniz MD
--- NOTE | 2019-12-14 18:03 | NEPHROLOGY PROGRESS NOTE ---
DATE: 12/14/2019 SUBJECTIVE: He is off of the BiPAP and on a closed face mask. He states he is making more urine for sure today. Awake, alert, oriented. OBJECTIVE: Vital Signs: Blood pressure 133/85, heart rate 85, respirations 23, afebrile. General: No acute distress. Skin: Warm and dry. Neck: Veins are not appreciated. Heart: Regular. Lungs: Equal with crackles bilaterally. Abdomen: Soft, nontender. Bowel sounds present. Extremities: Trace edema. No clubbing or cyanosis. IMPRESSION/PLAN: Acute kidney injury. BUN and creatinine continue to rise. Electrolytes and acid-base are acceptable. Urine output is much better. He does not meet criteria for dialysis today. I will minimize his IV fluids. Observe his response. cc: Rodriguez Amin MD
[2019-12-14] MEDS: PROTONIX IV SCH (18:12)
[2019-12-14] MEDS: SODIUM CHLORIDE 0.9% INJ SCH (18:13)
[2019-12-15] MEDS: ZOSYN 2.25 GM in NS 50 ML IV SCH ×4 (00:42→18:13)
[2019-12-15] MEDS: DUONEB (A & A) INH SCH ×4 (02:50→21:21)
[2019-12-15 04:54] LABS: ALLEN TEST YES; BLOOD TYPE ARTERIAL; HCO3-(ACT) 25.7 mmoll (20.0-26.0); METHB 0.9 % (0.0-1.5); O2HB 95.9 % (95.0-99.0); PCO2(98.6) 38 mmHg (35-45); PO2(98.6) 101 mmHg (60-100); SAMPLE BLOOD; SAO2 98.2 % (95.0-100.0); THB 14.8 g/dL (11.5-17.4); pH(98.6) 7.43 (7.35-7.45)
[2019-12-15 04:55] LABS: MODALITY BI PAP
[2019-12-15 06:36] LABS: BASO# 0.04 X1000 (0.0-0.2); BASO% 0.2 % (0.0-0.8); EOS# 0.09 X1000 (0.0-0.7); EOS% 0.4 % (0.0-10.0); HEMATOCRIT 35.7 % (42.0-52.0); HEMOGLOBIN 12.2 g/dL (14.0-18.0); IMM GRAN# 1.18 X1000 (0.0-0.04); IMM GRAN% 5.8 % (0.0-0.5); LYMPH# 0.96 X1000 (1.2-3.4); LYMPH% 4.8 % (20.5-51.1); MCH 26.9 PG (27-31); MCHC 34.2 g/dL (33-37); MCV 78.6 FL (81-99); MONO# 1.19 X1000 (0.11-0.59); MONO% 5.9 % (1.7-9.3); MPV 11.2 FL (7.4-10.4); NEUT# 16.73 X1000 (1.4-6.5); NEUT% 82.9 % (42.2-75.2); PLT 120 X1000 (130-400); RBC 4.54 XMIL (4.7-6.1); RDW 12.9 % (11.5-14.5); WBC 20.19 X1000 (4.8-10.8)
[2019-12-15 06:48] LABS: ALB/GLOB RATIO 0.5; ALBUMIN 1.8 g/dL (3.5-5.0); CALCIUM 7.2 mg/dL (8.8-10.2); CREATININE 3.8 mg/dL (0.7-1.2); DIRECT BILIRUBIN 0.9 mg/dL (0.00-0.20); MAGNESIUM 2.4 mg/dL (1.5-2.7); PHOSPHORUS 4.3 mg/dL (2.7-4.5); POTASSIUM 3.3 mmol/L (3.5-5.1); TOTAL BILIRUBIN 1.63 mg/dL (0.20-1.00); TOTAL PROTEIN 5.2 g/dL (6.3-8.3)
--- NOTE | 2019-12-15 07:08 | PROGRESS NOTE ---
DATE: 12/15/2019 SUBJECTIVE: Patient reports breathing better. According to nursing staff, he has been resting last night more than the day before. He is less tachypneic. He continues to require BiPAP. When he was on non-rebreather mask, his O2 saturation was barely 90 or 91%. The patient actually because of shortness of breath requests to be put back on BiPAP. OBJECTIVE: Vital Signs: Temperature 98.9 degrees, heart rate 76, respiratory 22, blood pressure 118/82, O2 saturation 96% on room air. General Examination: This is a 49-year-old male, lying in bed in no acute distress. Cardiovascular exam: S1, S2 heard. No murmurs, gallops, or rubs. Regular rate and rhythm. Respiratory exam: Coarse breath sounds still noted in both pulmonary bases, as well as mild wheezing. The patient is not using any accessory muscles or having work of breathing. Abdomen: Soft, nontender to palpation. Bowel sounds present. No organomegaly. No signs of peritoneal irritation. Extremities: No clubbing, cyanosis, or edema. Peripheral pulses present in both legs. Neurological exam: Patient is alert, oriented x3. Moves 4 extremities. LABORATORY DATA: 1. White cell count 20.18, hemoglobin 12.2, hematocrit 35.7, platelets 120. ABG that shows pH 7.42 with PCO2 38, PO2 101. 2. BMP still pending. ASSESSMENT AND PLAN: 1. Acute hypoxemic respiratory failure. The patient continues to require BiPAP. We try non- rebreather mask, but he was feeling short of breath with that. Also his saturations were barely 90. We will continue with BiPAP. Ideally we need high-flow nasal cannula, but we do not have any bed available in the hospital. We will continue to monitor. 2. Aspiration pneumonia secondary to Streptococcus pyogenes group A. The patient currently is on Zosyn and Zyvox. I am awaiting the results of the sputum culture to adjust doses of antibiotics. We will continue to monitor. 3. Influenza A and B. Patient continues to receive Tamiflu 75 mg oral twice daily. 4. Acute kidney injury. Renal function from today is not available, but from the last 3 days continues to get worse--1.9, 2.6 and 3.4 yesterday creatinines. Although the BUN is not that high, Nephrology has been consulted. They do not think this patient is a candidate. Apparently there is good urine output. At this point, we will continue to monitor. 5. Hyponatremia resolved. 6. Gastrointestinal prophylaxis. Patient is on Protonix. 7. Deep vein thrombosis prophylaxis. Patient is on sequential compression devices. 8. Disposition: We will continue to monitor this patient closely in the intensive care unit. cc: Stephan Burt MD
[2019-12-15] MEDS: ZYVOX 600 MG/D5W 600 MG/300 ML IVPB IV SCH ×2 (08:54→20:37)
[2019-12-15] MEDS: TAMIFLU PO SCH ×2 (08:59→20:38)
[2019-12-15] MEDS ORDERED: LASIX IV ONE (11:11)
--- NOTE | 2019-12-15 13:54 | PULMONOLOGY PROGRESS NOTE ---
DATE: 12/15/2019 SUBJECTIVE: The patient is awake and alert. He is currently transitioning to the chair. He does have some oxygen desaturation on the face mask. He continues to have a cough with some sputum production. OBJECTIVE: Vital Signs: The patient has been afebrile for the last 24 hours. Blood pressure 120/77, heart rate 77, respiratory rate 28, oxygen saturation 93% on non-rebreather. HEENT: Pupils are equal and reactive. Oropharynx appears clear. Neck: Neck is supple. Chest: Reveals rhonchi bilaterally. Cardiac exam: Regular rate. Normal S1, normal S2. Abdomen: Abdomen is soft. Extremities: Reveal trace edema. LABORATORIES: 1. White blood count 20,000, hemoglobin 12.2, platelet count 120,000. 2. Chemistries: Sodium 127, potassium 3.3, chloride 86, bicarbonate 23. 3. BUN 57, creatinine 3.8. MICROBIOLOGY: Reveals no new data. Arterial blood gas reveals a pH 7.43, pCO2 of 38, PO2 of 101 with a lactate of 2.4. IMPRESSION: A 49-year-old with: 1. Influenza. 2. Strep pyogenes bacteremia and pneumonia. 3. Acute hypoxemic respiratory failure. 4. Resolving leukopenia. 5. Acute renal failure. DISCUSSION: A 49-year-old with problems outlined above. Clinically, he does not appear worse than yesterday. He has been transitioned to the chair today. PLAN: 1. Diet as tolerated. The patient will be cautioned about slow and steady on the p.o. intake. He is still at risk for intubation. 2. Continue broad-spectrum antibiotics. 3. Await sputum culture results. 4. Continue oxygen and BiPAP as needed. 5. Nephrology management per Dr. Amin. 6. Follow up chest x-ray tomorrow. cc: Gal Alaniz MD
--- NOTE | 2019-12-15 14:42 | NEPHROLOGY PROGRESS NOTE ---
DATE: 12/15/2019 SUBJECTIVE: He is sitting up in a chair wearing a closed face mask. Feels like his breathing is improved. OBJECTIVE: Vital Signs: Blood pressure 127/85, heart rate 73, respirations 27, afebrile. Intake 4.3 L. Output 3.3 L. General: No acute distress. Skin: Warm and dry. Neck: Neck veins are distended in the erect position. Heart: Regular. Lungs: Have equal breath sounds but crackles are audible. Abdomen: Soft, nontender. Bowel sounds are present. Extremities: With 2+ edema extending up to the hip. IMPRESSION: Acute kidney injury. BUN and creatinine continue to rise. His sodium has fallen somewhat to 127. His only concerning indication for dialysis might be volume status but he has excellent urine output. I will stop his bicarbonate drip and give a single dose of IV Lasix and observe his response. I believe he will begin to recover within the next 24 to 48 hours. cc: Rodriguez Amin MD
[2019-12-15] MEDS: PROTONIX IV SCH (18:13)
[2019-12-15] MEDS ORDERED: HALL'S COUGH LOZENGE MT PRN (19:53)
[2019-12-16] MEDS: ZOSYN 2.25 GM in NS 50 ML IV SCH ×4 (00:15→18:07)
[2019-12-16] MEDS: DUONEB (A & A) INH SCH ×4 (03:29→21:39)
[2019-12-16 04:50] LABS: ALLEN TEST YES; BE 5.9 mmoll (-3.0-3.0); BLOOD TYPE ARTERIAL; HCO3-(ACT) 29.5 mmoll (20.0-26.0); O2(CT) 19.5 mL/dL (15.0-23.0); O2HB 97.3 % (95.0-99.0); PCO2(98.6) 33 mmHg (35-45); PO2(98.6) 182 mmHg (60-100); SAMPLE BLOOD; SAO2 100.1 % (95.0-100.0); pH(98.6) 7.54 (7.35-7.45)
[2019-12-16 04:51] LABS: MODALITY NRB
[2019-12-16 06:33] LABS: BASO% 0.4 % (0.0-0.8); EOS# 0.06 X1000 (0.0-0.7); EOS% 0.2 % (0.0-10.0); HEMATOCRIT 37.4 % (42.0-52.0); HEMOGLOBIN 12.7 g/dL (14.0-18.0); IMM GRAN# 1.64 X1000 (0.0-0.04); IMM GRAN% 6.5 % (0.0-0.5); LYMPH# 1.32 X1000 (1.2-3.4); LYMPH% 5.2 % (20.5-51.1); MCH 26.5 PG (27-31); MCV 78.1 FL (81-99); MONO# 2.28 X1000 (0.11-0.59); MPV 11.1 FL (7.4-10.4); NEUT# 19.85 X1000 (1.4-6.5); NEUT% 78.7 % (42.2-75.2); PLT 136 X1000 (130-400); RBC 4.79 XMIL (4.7-6.1); RDW 12.7 % (11.5-14.5); WBC 25.25 X1000 (4.8-10.8)
--- NOTE | 2019-12-16 06:53 | PROGRESS NOTE ---
DATE: 12/16/2019 SUBJECTIVE: The patient reports that he has slowly breathes better. He does not look tachypneic today. According to nursing staff, he has been requiring oxygen by nonrebreather mask, and doing fine actually. OBJECTIVE: Vital Signs: Temperature 98.6 degrees, heart rate 61, respiratory rate 24, blood pressure 126/79, O2 saturation 98% on nonrebreather mask. General: A 49-year-old, male, lying in bed in no acute distress. Cardiovascular: S1, S2 heard. No murmurs, gallops, or rubs. Regular rate and rhythm. Respiratory: Coarse breath sounds still noted in both pulmonary bases. Mild wheezing noted. The patient is not using any accessory muscles or having work of breathing. Abdomen: Soft, nontender, nondistended. Bowel sounds present. No organomegaly. Extremities: No clubbing, cyanosis, or edema. Peripheral pulses present in both legs. Neurological: He is alert and oriented x3. Moves all 4 extremities. LABORATORY DATA: ABG shows pH 7.54, pCO2 of 33, PO2 of 192. BMP is still pending. ASSESSMENT AND PLAN: 1. Acute hypoxemic respiratory failure. The patient is requiring nonrebreather mask. The patient reports breathing better, so will continue with the same management. 2. Aspiration pneumonia secondary to streptococcal pyogenes. Will continue with Zosyn and Zyvox. Sputum culture is still pending. Will continue with the same management. 3. Influenza A and B. The patient continues to receive Tamiflu 75 mg by mouth twice daily. 4. Acute kidney injury. Creatinine for the last couple of days shows 3.[address] Amin is monitoring this patient closely. Urine output this is fine. Will continue to monitor. 5. Hyponatremia, resolved. 6. Hyponatremia, resolved. 7. Gastrointestinal prophylaxis. The patient is on Protonix. 8. Deep vein thrombosis prophylaxis. The patient is on sequential compression devices. 9. Disposition. Will continue to monitor this patient closely in the intensive care unit. He is still at high risk of intubation. cc: Stpehan Burt MD
[2019-12-16 06:56] LABS: ALB/GLOB RATIO 0.6; ALBUMIN 2.1 g/dL (3.5-5.0); CALCIUM 7.5 mg/dL (8.8-10.2); CREATININE 4.2 mg/dL (0.7-1.2); DIRECT BILIRUBIN 1.5 mg/dL (0.00-0.20); MAGNESIUM 2.6 mg/dL (1.5-2.7); PHOSPHORUS 4.4 mg/dL (2.7-4.5); TOTAL BILIRUBIN 2.32 mg/dL (0.20-1.00); TOTAL PROTEIN 5.8 g/dL (6.3-8.3)
--- NOTE | 2019-12-16 07:38 | Diag Imaging Result Doc PS360 ---
EXAM: CHEST-PORTABLE 12/16/2019 HISTORY: abnormal exam TECHNIQUE: AP portable at 0514 COMMENT: There is dense alveolar opacification of the lingula and left lower lobe and also of the parahilar portions of the right lung particularly the upper lobe. There is some improvement in the right middle lobe since the previous study of 12/14/2019. Otherwise are has been no appreciable change. IMPRESSION: Slightly improved pulmonary edema plus minus pneumonia. Electronically signed by Gianluca Carter 12/16/2019 7:36 AM
[2019-12-16 08:00] LABS: LYMPHS 5 % (21-51); MONO 9 % (1-9); SEGS 86 % (42-75)
[2019-12-16] MEDS: ZYVOX 600 MG/D5W 600 MG/300 ML IVPB IV SCH ×2 (09:22→20:12)
[2019-12-16] MEDS: TAMIFLU PO SCH ×2 (09:22→20:12)
[2019-12-16] MEDS: MORPHINE IV PRN (12:27)
--- NOTE | 2019-12-16 14:56 | PULMONOLOGY PROGRESS NOTE ---
DATE: 12/16/2019 SUBJECTIVE: The patient is awake, alert, and conversant. He reports his breathing is improving, but he remains extremely weak. OBJECTIVE: Vital Signs: The patient has been afebrile for the last 24 hours, blood pressure 123/72, heart rate 62, respiratory rate 21, oxygen saturation 95% on nonrebreather. HEENT: Pupils are equal and reactive. Oropharynx appears clear. Neck: Supple. Chest: Rhonchi bilaterally. Cardiac: S1, S2. Abdomen: Soft. Extremities: Trace to 1+ peripheral edema. IMAGING AND LABORATORY DATA: Chest x-ray reveals some improvement in the pneumonia on the right, but continued dense infiltrate in the left lower lobe and lingula. White blood count 25.25, hemoglobin 12.7, platelet count 136,000. Arterial blood gas reveals a pH of 7.54, pCO2 of 33, PO2 of 182, with a lactate of 2.4. Sodium 128, potassium 3.0, chloride 82, bicarbonate 26, BUN 71, creatinine 4.2. MICROBIOLOGY: No new blood culture data. IMPRESSION: A 49-year-old with: 1. Influenza viral pneumonia. 2. Streptococcus pyogenes bacterial pneumonia with bacteremia. 3. Acute hypoxemic respiratory failure. 4. Leukopenia with continued recovery of bone marrow. 5. Acute renal failure. PLAN: 1. Continue current broad-spectrum antibiotics. 2. Continue bronchial hygiene. 3. Initiate DVT prophylaxis. 4. Nephrology management per Dr. Amin. 5. Continue bronchial hygiene. cc: Gal Alaniz MD
[2019-12-16] MEDS: SODIUM CHLORIDE 0.9% INJ SCH (18:08)
[2019-12-16] MEDS: PROTONIX IV SCH (18:08)
[2019-12-16] MEDS: LOVENOX SUBQ SCH (18:09)
[2019-12-17] MEDS: ZOSYN 2.25 GM in NS 50 ML IV SCH ×2 (00:07→05:23)
[2019-12-17] MEDS: DUONEB (A & A) INH SCH ×4 (03:37→21:22)
[2019-12-17 04:41] LABS: ALLEN TEST YES; BE 10.6 mmoll (-3.0-3.0); BLOOD TYPE ARTERIAL; HCO3-(ACT) 33.2 mmoll (20.0-26.0); METHB 0.8 % (0.0-1.5); O2(CT) 18.3 mL/dL (15.0-23.0); O2HB 96.9 % (95.0-99.0); PCO2(98.6) 45 mmHg (35-45); PO2(98.6) 110 mmHg (60-100); SAMPLE BLOOD; SAO2 99.4 % (95.0-100.0); THB 13.3 g/dL (11.5-17.4)
[2019-12-17 04:42] LABS: MODALITY VENTIMASK
[2019-12-17 06:30] LABS: BASO# 0.13 X1000 (0.0-0.2); BASO% 0.5 % (0.0-0.8); EOS% 0.4 % (0.0-10.0); HEMATOCRIT 36.8 % (42.0-52.0); HEMOGLOBIN 12.6 g/dL (14.0-18.0); IMM GRAN# 2.01 X1000 (0.0-0.04); IMM GRAN% 8.5 % (0.0-0.5); LYMPH# 1.52 X1000 (1.2-3.4); LYMPH% 6.4 % (20.5-51.1); MCH 27.3 PG (27-31); MCHC 34.2 g/dL (33-37); MCV 79.7 FL (81-99); MONO# 2.29 X1000 (0.11-0.59); MONO% 9.6 % (1.7-9.3); MPV 11.1 FL (7.4-10.4); NEUT# 17.69 X1000 (1.4-6.5); NEUT% 74.6 % (42.2-75.2); PLT 127 X1000 (130-400); RBC 4.62 XMIL (4.7-6.1); RDW 12.8 % (11.5-14.5); WBC 23.74 X1000 (4.8-10.8)
--- NOTE | 2019-12-17 06:42 | Diag Imaging Result Doc PS360 ---
CHEST-PORTABLE - 12/17/2019 INDICATION: abnormal exam COMPARISON: 12/16/2019 FINDINGS: There has been continued worsening in the ill-defined infiltrate throughout the right lung. Stable dense infiltrate throughout the left lung. Stable severely low lung volumes. Stable cardiomegaly. IMPRESSION: Worsening infiltrate throughout the right lung. Electronically signed by Helder Armenta 12/17/2019 6:40 AM
[2019-12-17 06:59] LABS: ALB/GLOB RATIO 0.6; ALBUMIN 2.1 g/dL (3.5-5.0); CALCIUM 8.1 mg/dL (8.8-10.2); CREATININE 4.7 mg/dL (0.7-1.2); DIRECT BILIRUBIN 0.9 mg/dL (0.00-0.20); POTASSIUM 2.8 mmol/L (3.5-5.1); TOTAL BILIRUBIN 1.45 mg/dL (0.20-1.00); TOTAL PROTEIN 5.8 g/dL (6.3-8.3)
--- NOTE | 2019-12-17 07:38 | PROGRESS NOTE ---
DATE: 12/17/2019 SUBJECTIVE: The patient reports breathing better. He does not look tachypneic upon my examination today. He is requiring now oxygen by Ventimask. No other issues noted as per nursing staff overnight. He is having good urine output. OBJECTIVE: Vital Signs: Temperature 98.8 degrees, heart rate 56, respiratory rate 22, blood pressure 107/65, O2 saturation 97% on Venturi mask at 50%. General: This is a 49-year-old, male, lying in bed in no acute distress. Cardiovascular: S1, S2 heard. No murmurs, gallops, or rubs. Regular rate and rhythm. Respiratory: Coarse breath sounds still noted in both pulmonary bases, with mild wheezing noted. The patient is not using any accessory muscles or having work of breathing. Abdomen: Soft. Nontender to palpation. Bowel sounds present. No organomegaly. Extremities: No clubbing, cyanosis, or edema. Peripheral pulses present in both legs. Neurological: The patient is alert and oriented x3. Moves all 4 extremities. LABORATORY DATA: White cell count 23.74, hemoglobin 12.6, hematocrit 36.8, platelets 127,000. ABG that shows pH 7.50, with pCO2 of 45, PO2 of 110 (that was taking Ventimask off), FiO2 of 50%. BMP shows potassium 2.8, creatinine 4.7. Total bilirubin 1.45. ASSESSMENT AND PLAN: 1. Acute hypoxemic respiratory failure. Clinically, this patient reports breathing better. Now, his oxygen requirements are getting a little bit better. Now, he is requiring Ventimask. Will continue to monitor this patient closely. 2. Aspiration pneumonia secondary to Streptococcal pyogenes. At this point, according to the sensitivity, will continue with ceftriaxone, in this case, 2 grams intravenously every 24 hours. 3. Influenza A and B. The patient continues to receive Tamiflu twice daily. He is going to stop that medication tomorrow. 4. Acute kidney injury. Creatinine continues to get worse. Urine output is definitely very good. During the last 24 hours, he has made almost 3 liters of urine, so at this point, will continue to monitor. 5. Hyponatremia, resolved. 6. Gastrointestinal prophylaxis. The patient is on Protonix. 7. Disposition. Will continue to monitor this patient closely. 8. Hypokalemia. Will replenish potassium today. cc: Stephan Burt MD
[2019-12-17] MEDS: ROCEPHIN 2 GM in NS 50 ML IV SCH (08:01)
[2019-12-17] MEDS: KLOR-CON PO SCH ×2 (08:01→20:57)
[2019-12-17] MEDS: TAMIFLU PO SCH ×2 (08:03→20:58)
[2019-12-17] MEDS: LOVENOX SUBQ SCH (17:22)
[2019-12-17] MEDS: PROTONIX IV SCH (17:22)
[2019-12-17] MEDS: SODIUM CHLORIDE 0.9% INJ SCH (17:22)
--- NOTE | 2019-12-17 19:25 | PROVIDER PROGRESS NOTE ---
Progress Note Subjective: He voices decreased lung expansion. He denies any uremic complaints. Objective: temperature 98.3 pulse 65, respirations 20, blood pressure 126/73, o2 sat 95% on Venturi mask. General: ill appearing white male lying in bed in no distress. HEENT: normocephalic, atraumatic, pupils equal and reactive, trachea midline. Skin: warm and dry. Neck: supple, 6cm JVD Cardiovascular: S1S2, Regular rate and rhythm. No murmurs or gallops. Respiratory: clear throughout anteriorly Abdomen: soft, nontender and nondistended. Bowel sounds present. : non-inspected Extremities: trace pitting to bilateral hips. Neurological: alert and oriented to person, place, and time Labs: WBC 23.74, hemoglobin 12.6, hematocrit 36.8, platelet count 127, sodium 134, potassium 2.8, chloride 86, carbon dioxide 29, BUN 85, creatinine 4.7, intake 1650, output 3350. Impression: Acute kidney injury. Likely acute tubular necrosis related to Flu A/B and pneumonia/bacteremia. His BUN and Creatinine continue to rise. He continues to have excellent urine output. We will speak with him about starting urgent renal replacement therapy tomorrow if his labs do not stabilize. Blood pressure. Stable. Fluid volume. Euvolemic. Anemia. In target. Electrolytes. Hypokalemia. IV potassium replacement ordered by primary. Acid-base balance. Improved. Nutrition. Adequate. Medication review. Rocephin 2grams ordered.
[2019-12-18] MEDS: DUONEB (A & A) INH SCH ×4 (03:17→21:40)
[2019-12-18] MEDS: ROCEPHIN 2 GM in NS 50 ML IV SCH (05:49)
--- NOTE | 2019-12-18 06:58 | PULMONOLOGY PROGRESS NOTE ---
DATE: 12/17/2019 SUBJECTIVE: The patient is awake and alert. He reports he is fatigued, but his breathing has improved. He does not have a good appetite. He reports he has the most difficulty with sleeping and fatigue between 2:00 and 4:00 each morning. OBJECTIVE: Vital Signs: The patient has been afebrile for the last 24 hours. Blood pressure 107/72, heart rate 62, respiratory rate 21, oxygen saturation 95% on Venturi mask. HEENT: Pupils are equal and reactive. Oropharynx is clear. Neck: Supple. Chest: Reveals diminished breath sounds in left base. Cardiac: S1, S2. Abdomen: Soft. Extremities: No edema. LABORATORY DATA: White blood count 23.7 thousand, hemoglobin 12.6, platelet count 127,000, sodium 134, potassium 2.8, chloride 86, bicarbonate 85, and creatinine 4.7. IMAGING STUDIES: Chest x-ray reveals shallow inspiration with increased vascular markings on the right with dense infiltrates on the left. IMPRESSION: A 49-year-old with: 1. Influenza viral pneumonia. 2. Streptococcal pyogenes bacterial pneumonia. 3. Hypoxemic respiratory failure. 4. Leukopenia with resolution and now leukocytosis. 5. Acute renal failure. DISCUSSION: This is a 49-year-old with problems as outlined above. His x-ray may look slightly worse today but not substantially. Clinically, he appears improving. His kidney function appears to be plateauing. He has good urine output. PLAN: 1. Continue current antibiotic regimen. 2. Wean oxygen as tolerated. 3. Mobilize as tolerated. 4. Continue bronchial hygiene. 5. Nephrology management per Dr. Amin. cc: Gal Alaniz MD
--- NOTE | 2019-12-18 07:01 | Diag Imaging Result Doc PS360 ---
EXAM: CHEST-PORTABLE HISTORY: abnormal exam TECHNIQUE: Single view COMPARISON: 12/17/2019 FINDINGS: Poor inspiratory effort. There are dense bilateral infiltrates, left greater than right. There is also atelectasis in the left lung base with a small left pleural effusion. Heart is mildly prominent. IMPRESSION: Stable chest Electronically signed by Alfonzo Lopez 12/18/2019 6:32 AM
[2019-12-18] MEDS: TAMIFLU PO SCH (08:49)
--- NOTE | 2019-12-18 08:59 | PROGRESS NOTE ---
DATE: 12/18/2019 SUBJECTIVE: Patient reports breathing better. He continues to require oxygen by Ventimask. No fever. He is feeling weak because of being in the bed for the last 6 days. OBJECTIVE: Vital Signs: Temperature 98.2 degrees, heart rate 61, respiratory rate 22, blood pressure 139/74, O2 saturation 94% on Ventimask. General: This is a 49-year-old male, lying in bed, in no acute distress. Cardiovascular: S1, S2 heard. No murmurs, gallops, or rubs. Regular rate and rhythm. Respiratory: Coarse breath sounds still noted in both pulmonary bases with mild wheezing noted. The patient is not using any accessory muscles or having work of breathing. Abdomen: Soft. Nontender to palpation. Bowel sounds present. No organomegaly. Extremities: No clubbing, cyanosis. Mild edema in both lower extremities but that is building up for the last couple of days. Neurological: Patient alert and oriented x3. Moves 4 extremities. LABORATORY DATA: Pending at the time of dictation. ASSESSMENT AND PLAN: 1. Acute hypoxemic respiratory failure. Clinically, this patient is stable. Continues to require oxygen by Ventimask. We will try to continue to wean off the mask. Pulmonary following this patient. Follow recommendation. 2. Aspiration pneumonia secondary to streptococcal pyogenes. We will continue with ceftriaxone 2 g IV q.24 hours. 3. Patient will finish Tamiflu that is renally dosed at 30 mg p.o. twice daily this afternoon. 4. Acute kidney injury. That continues to get worse over the few days. I have seen the note from Nephrology who are planning to do renal replacement if kidney function continues to get worse. Of course, at this point, will monitor creatinine. We will see what it shows and we will go from there. 5. Gastrointestinal prophylaxis. Patient is on Protonix. 6. Hypokalemia. We will continue to monitor BMP. 7. Disposition. We will continue to monitor this patient closely. We will see if this patient finally ends up requiring dialysis. cc: Stephan Burt MD MTDD
[2019-12-18] MEDS: POTASSIUM CHLORIDE 20 MEQ/SWI 20 MEQ/100 ML IVPB IV SCH ×2 (09:21→11:34)
[2019-12-18 11:18] LABS: BASO# 0.12 X1000 (0.0-0.2); BASO% 0.5 % (0.0-0.8); EOS# 0.14 X1000 (0.0-0.7); EOS% 0.6 % (0.0-10.0); HEMATOCRIT 40.9 % (42.0-52.0); HEMOGLOBIN 13.3 g/dL (14.0-18.0); IMM GRAN# 2.23 X1000 (0.0-0.04); IMM GRAN% 9.1 % (0.0-0.5); LYMPH# 1.62 X1000 (1.2-3.4); LYMPH% 6.6 % (20.5-51.1); MCH 26.8 PG (27-31); MCHC 32.5 g/dL (33-37); MCV 82.3 FL (81-99); MONO# 1.62 X1000 (0.11-0.59); MONO% 6.6 % (1.7-9.3); MPV 10.6 FL (7.4-10.4); NEUT# 18.78 X1000 (1.4-6.5); NEUT% 76.6 % (42.2-75.2); PLT 147 X1000 (130-400); RBC 4.97 XMIL (4.7-6.1); RDW 13.6 % (11.5-14.5); WBC 24.51 X1000 (4.8-10.8)
[2019-12-18 12:02] LABS: ALB/GLOB RATIO 0.7; ALBUMIN 2.6 g/dL (3.5-5.0); CALCIUM 8.5 mg/dL (8.8-10.2); CREATININE 4.8 mg/dL (0.7-1.2); DIRECT BILIRUBIN 0.4 mg/dL (0.00-0.20); PHOSPHORUS 4.4 mg/dL (2.7-4.5); POTASSIUM 3.9 mmol/L (3.5-5.1); TOTAL BILIRUBIN 0.78 mg/dL (0.20-1.00); TOTAL PROTEIN 6.5 g/dL (6.3-8.3)
[2019-12-18 12:16] LABS: BANDS 4 % (0-1); LYMPHS 4 % (21-51); MONO 6 % (1-9); SEGS 84 % (42-75)
[2019-12-18] MEDS: PROTONIX IV SCH (17:48)
[2019-12-18] MEDS: LOVENOX SUBQ SCH (17:49)
--- NOTE | 2019-12-18 18:05 | PROVIDER PROGRESS NOTE ---
Progress Note Subjective: SOB is improved. Eating. Objective: VSS General: ill appearing white male lying in bed in no distress. HEENT: normocephalic, atraumatic, pupils equal and reactive, trachea midline. Skin: warm and dry. Neck: supple, 8cm JVD Cardiovascular: S1S2, Regular rate and rhythm. No murmurs or gallops. Respiratory: clear throughout anteriorly Abdomen: soft, nontender and nondistended. Bowel sounds present. : non-inspected Extremities: trace pitting to bilateral hips. Generalized upper extremity edema. Neurological: alert and oriented to person, place, and time Labs: Impression: Acute kidney injury. ATN from sepsis. Labs still rising but good UOP. Hold dialysis. Blood pressure. Stable. Fluid volume. Euvolemic. Anemia. In target. Electrolytes. Hypokalemia. IV potassium replacement ordered by primary. Acid-base balance. Improved. Nutrition. Adequate. Medication review. Rocephin 2grams ordered.
--- NOTE | 2019-12-18 19:40 | PROVIDER PROGRESS NOTE ---
Progress Note Dr. Landis Progress Note/Pulmonary and or critical care Subjective: The patient is lying in bed on VM 50% with no acute distress noted. He is complaining of hiccup at this time. He states he is feeling a lot better. Patients daughter is at the bedside. Input is appreciated from Dr. Grayson and other teams on the case. Objective: Vital Signs: T 98.2 (no fever in last 24 hours), ND 63, RR 25, BP 131/75 and SaO2 92% on VM 50%. Physical Examination: General: Lying in bed with no acute distress noted. HEENT: Normocephalic. Trachea midline. Respiratory: Even and unlabored. Symmetrical excursion. Auscultation reveals fine inspiratory crackles bibasilarly. CVS: Regular rate and rhythm with S1 and S2 appreciated. Abdomen: Soft. Nontender. Bowel sounds present in all 4 quadrants. Extremities: SCD on BLE with trace edema. Neuro: A/Ox3. Speech fluent. Follow commands. Weakness present. Labs and Radiology: Laboratory Results 12/18/19 12/18/19 09:05 09:05 WBC 24.51 H RBC 4.97 Hgb 13.3 L Hct 40.9 L MCV 82.3 MCH 26.8 L MCHC 32.5 L RDW Std Deviation 13.6 Plt Count 147 MPV 10.6 H Immature Gran % (Auto) 9.1 H Neut % (Auto) 76.6 H Lymph % (Auto) 6.6 L Monroe % (Auto) 6.6 Eos % (Auto) 0.6 Baso % (Auto) 0.5 Immature Gran # (Auto) 2.23 H Neut # (Auto) 18.78 H Lymph # (Auto) 1.62 Monroe # (Auto) 1.62 H Eos # (Auto) 0.14 Baso # (Auto) 0.12 Segmented Neutrophils 84 H Band Neutrophils 4 H Lymphocytes 4 L Monocytes 6 Myelocytes 2.0 Sodium 136 Potassium 3.9 D Chloride 88 L Carbon Dioxide 29 Anion Gap 19 BUN 97 H Creatinine 4.8 H Estimated GFR/1.73 m2 13 BUN/Creatinine Ratio 20 Glucose 103 Calculated Osmolality 302 Calcium 8.5 L Phosphorus 4.4 Total Bilirubin 0.78 Direct Bilirubin 0.40 H AST 32 ALT 26 Alkaline Phosphatase 226 H Total Protein 6.5 Albumin 2.6 L Globulin 3.9 Albumin/Globulin Ratio 0.7 Assessment: Acute hypoxemic respiratory failure. Influenza A and B. Streptococus pyogenes bacterial pneumonia with bacteremia. CXR today shows stable dense bilateral infiltrates, left greater than right, LLL atelectasis and a small left pleural effusion. Acute renal failure with good urine output. Dr. Amin on board. Plan: Continue current treatment and supportive care per admitting and other teams on the case. Antibiotic (Ceftriaxone). Bronchodilators. Tamiflu (today is the last day). Continue supplemental oxygen. We will titrate oxygen to patients needs per clinical protocol. Continue GI and DVT prophylaxis. Physical therapy. Encourage routine incentive spirometer use. We discuss patients condition and care plan with family at the bedside and all questions have been answered. Total evaluation time in minutes: 32.
[2019-12-19] MEDS ORDERED: AYR NASAL SPRAY NAS PRN (02:32)
[2019-12-19] MEDS: DUONEB (A & A) INH SCH ×4 (03:22→21:40)
[2019-12-19 05:14] LABS: ALLEN TEST YES; BE 8.6 mmoll (-3.0-3.0); BLOOD TYPE ARTERIAL; HCO3-(ACT) 31.6 mmoll (20.0-26.0); PCO2(98.6) 37 mmHg (35-45); PO2(98.6) 81 mmHg (60-100); SAMPLE BLOOD; pH(98.6) 7.54 (7.35-7.45)
[2019-12-19 05:16] LABS: MODALITY VENTIMASK
[2019-12-19] MEDS: ROCEPHIN 2 GM in NS 50 ML IV SCH (06:44)
[2019-12-19 06:59] LABS: ALBUMIN 2.7 g/dL (3.5-5.0); CALCIUM 7.9 mg/dL (8.8-10.2); CREATININE 4.5 mg/dL (0.7-1.2); PHOSPHORUS 4.4 mg/dL (2.7-4.5); POTASSIUM 3.8 mmol/L (3.5-5.1)
--- NOTE | 2019-12-19 10:51 | NEPHROLOGY PROGRESS NOTE ---
DATE: 12/19/2019 DATE AND TIME SEEN: On 12/19/2019 at 0625 hours. SUBJECTIVE: Mr. Higgins is resting quietly in bed. He states that he has been hot. He is running a low-grade temp this a.m. and has during the night. He denies chest pain. States his breathing is slightly improved. OBJECTIVE: Vital signs: Temperature 99.1 degrees, blood pressure 129/76, heart rate 67, respirations are 24. He is on a 50% Ventimask. His last recorded saturation 95%. He has had 620 input and 475 output to void. LABORATORY DATA: Sodium is 136, potassium 3.8, chloride 91, CO2 of 29, BUN 93, creatinine 4.5, glucose 113. His anion gap is 16, calcium 7.9, phosphorus 4.4, albumin is 2.7. His white count previously was 24.5 on the with a hemoglobin of 13.3. PHYSICAL EXAMINATION: General: This is a 49-year-old white male resting quietly in bed. He appears chronically ill, in no acute distress. Skin: Warm and dry. HEENT: Normocephalic, atraumatic. Conjunctiva is pale. He has MARTÍN. Mucous membranes are moist. Neck: Supple. Trachea midline. He has no evidence of JVD. Cardiovascular: Regular rate and rhythm. No murmur or gallop appreciated. Lungs: Clear anteriorly. Equal excursion. He remains on 50% Ventimask. Abdomen: Large, round, soft, nontender. Positive bowel sounds. Genitourinary: Not inspected. The patient has been voiding, adequate amount documented. Extremities: Have trace edema up into the mid hip region, though improved, nonpitting. Generalized upper extremity edema, though he states this is improved. Neurological: Alert and oriented x3. ASSESSMENT AND PLAN: 1. Acute kidney injury. This is acute tubular necrosis secondary to sepsis. BUN and creatinine have continued to slowly improve over the last 48 hours. His BUN is 93 with a creatinine down to 4.5. Adequate urine output documented. We will continue to monitor. 2. Electrolytes and acid-base balance. These are acceptable. 3. Anemia. This is in target. 4. Flu. The patient remains on isolation for droplet precautions. 5. Sepsis. The patient continues on renal-dosed antibiotics. I would like to thank you for allowing us to follow with this patient. Dictated by DICK Montoya for Rodriguez Amin MD Face to face encounter, data reviewed, discussed with Beto Correia on 12/19/19. I agree with the above assessment and plan of care. cc: DICK Montoya MD [facility]
--- NOTE | 2019-12-19 15:00 | PROVIDER PROGRESS NOTE ---
Progress Note Dr. Landis Progress Note/Pulmonary and or critical care Subjective: The patient is lying in bed on VM 50% initially. Respiratory therapist at the bedside is switching him on NC 4L. He is feeling better, but still feel weak. No family at the bedside. Input is appreciated from Dr. Edouard and other teams on the case. Objective: Vital Signs: T 97.5 (no fever in last 24 hours), CT 70, RR 22, BP 133/80 and SaO2 95% on VM 50%. Physical Examination: General: Lying in bed with no acute distress noted. HEENT: Normocephalic. Trachea midline. Mucosa pink and moist. Respiratory: Even and unlabored. Symmetrical excursion. Auscultation reveals improving air entry bilaterally. CVS: Regular rate and rhythm with S1 and S2 appreciated. Abdomen: Soft. Nontender. Bowel sounds present in all 4 quadrants. Extremities: No pedal edema. Neuro: A/Ox3. Speech fluent. Follow commands. Weakness present. Labs and Radiology: Laboratory Results 12/19/19 12/19/19 12/19/19 05:04 05:35 05:35 Specimen Type ARTERIAL Sample Site R RADIAL pH 7.54 H pCO2 37 pO2 81 HCO3 31.6 H Base Excess 8.6 H Guzman Test YES A-a O2 Difference 229.0 Lactate 1.40 Liter Flow 15.0 Blood Gas Modality VENTIMASK FiO2 % 50.0 Sodium 136 Potassium 3.8 Chloride 91 L Carbon Dioxide 29 Anion Gap 16 BUN 93 H Creatinine 4.5 H Estimated GFR/1.73 m2 14 BUN/Creatinine Ratio 21 Glucose 113 H Calculated Osmolality 301 Calcium 7.9 L Phosphorus 4.4 [id number] Pept 6681 H Albumin 2.7 L Assessment: Acute hypoxemic respiratory failure. Influenza A and B. Streptococus pyogenes bacterial pneumonia with bacteremia. Acute renal failure with good urine output. Dr. Amin on board. Prognosis is guarded. Plan: Continue current treatment and supportive care per admitting and other teams on the case. Antibiotic (Ceftriaxone). Bronchodilators. Continue supplemental oxygen. We titrate oxygen to patients needs per clinical protocol. Continue GI and DVT prophylaxis. Physical therapy. Encourage routine incentive spirometer use. Total evaluation time in minutes: 31.
[2019-12-19] MEDS ORDERED: MORPHINE IV PRN (17:14)
--- NOTE | 2019-12-19 18:11 | PROGRESS NOTE ---
DATE: 12/19/2019 INTERVAL HISTORY: No acute events overnight. Mr. Higgins has not had any fever. He has been saturating 94% on 4 L nasal cannula. He continues to have leukocytosis and elevated proBNP. He has increasing BUN and creatinine. This is in fact slightly better than before. SUBJECTIVE: Mr. Higgins is complaining of hiccups. He denies any chest pain or shortness of breath at rest. He said with someone's help, he was able to go to the bathroom. VITALS: Temperature 98.6 degrees, pulse 66, respiratory rate 24, blood pressure 106/74, saturating 94% on 4 L nasal cannula. PHYSICAL EXAMINATION: He is in acute distress because of hiccups. Oral cavity is moist. He has significantly decreased air entry with inspiratory crackles and egophony on the left lower lung field infrascapular region. Adequate air entry on right hemithorax.Cardiovascular: S1, S2 normal. No gallop. Abdomen: Soft, nontender. No lower extremity edema. He is alert and oriented x3. LABORATORY DATA: No WBC today. PO2 of 81 on Ventimask. He does have BUN of 93, creatinine of 4.5. Elevated proBNP. MICROBIOLOGY: Repeat blood cultures have been ordered. IMAGING: No new chest x-ray. ASSESSMENT AND PLAN: 1. Severe sepsis and acute hypoxic respiratory failure due to left lower lobe pneumonia and influenza on presentation. Wean down oxygen as tolerated to maintain saturation more than 94%. He is status post treatment for influenza. Continue intravenous ceftriaxone. Follow up repeat blood culture results. Continue inhaled bronchodilators and oxygenation. 2. Acute kidney injury due to acute tubular necrosis due to sepsis. Differential could also include post streptococcal glomerulonephritis. He has had adequate urine output. I will follow up with complement C3 level. Nephrology team on board. The patient had 2.1 L of urine output yesterday. I will continue to monitor his kidney function. Appreciate Nephrology's recommendation. 3. Others. Start patient on Compazine for hiccups, which could be related to his left lower lobe pneumonia, continue enoxaparin for deep venous thrombosis prophylaxis, pantoprazole for stress ulcer prophylaxis. DISPOSITION: Continue to monitor patient inside PVC. Plan of care discussed with him. His questions have been answered. cc: Beltran Edouard MD [facility]
[2019-12-19] MEDS: LOVENOX SUBQ SCH (18:16)
[2019-12-19] MEDS: COMPAZINE PO PRN ×2 (18:16→21:26)
[2019-12-20] MEDS: DUONEB (A & A) INH SCH ×4 (03:32→20:00)
[2019-12-20] MEDS: ROCEPHIN 2 GM in NS 50 ML IV SCH (06:09)
[2019-12-20] MEDS: PRILOSEC PO SCH (06:09)
[2019-12-20 06:35] LABS: BASO# 0.12 X1000 (0.0-0.2); BASO% 0.5 % (0.0-0.8); EOS# 0.24 X1000 (0.0-0.7); HEMATOCRIT 39.8 % (42.0-52.0); HEMOGLOBIN 12.9 g/dL (14.0-18.0); IMM GRAN% 8.5 % (0.0-0.5); LYMPH# 1.91 X1000 (1.2-3.4); LYMPH% 8.1 % (20.5-51.1); MCH 26.9 PG (27-31); MCHC 32.4 g/dL (33-37); MCV 82.9 FL (81-99); MONO# 1.22 X1000 (0.11-0.59); MONO% 5.2 % (1.7-9.3); NEUT# 17.96 X1000 (1.4-6.5); NEUT% 76.7 % (42.2-75.2); PLT 161 X1000 (130-400); RDW 13.5 % (11.5-14.5); WBC 23.45 X1000 (4.8-10.8)
[2019-12-20 06:55] LABS: ALBUMIN 2.5 g/dL (3.5-5.0); CALCIUM 7.8 mg/dL (8.8-10.2); CREATININE 3.9 mg/dL (0.7-1.2); PHOSPHORUS 4.8 mg/dL (2.7-4.5); POTASSIUM 4.1 mmol/L (3.5-5.1)
[2019-12-20 07:05] LABS: EOS 1 % (1-10); LYMPHS 8 % (21-51); MONO 6 % (1-9); SEGS 85 % (42-75)
--- NOTE | 2019-12-20 07:41 | Diag Imaging Result Doc PS360 ---
EXAM: CHEST-1 VIEW INDICATION: SOB TECHNIQUE: One view COMPARISON: 12/18/2019 FINDINGS: Dense bilateral infiltrates, left greater than right, are again identified. There does appear to be some decrease in density of the infiltrate at the left lower lung zone. No new consolidations are identified. Cardiac silhouette is stable. IMPRESSION: Interval slight improvement on the left. Stable chest, otherwise. Electronically signed by Kushal Youssef 12/20/2019 7:39 AM
--- NOTE | 2019-12-20 11:35 | PROGRESS NOTE ---
DATE: 12/20/2019 INTERVAL HISTORY: No acute events overnight. He states he is still having intermittent hiccups, sometimes Compazine helps. He denies any chest pain. He is feeling slightly better than before. He is still a little short of breath at rest. We decreased his oxygen level to 3 L and he is saturating 94%. He is still coughing up brownish material. VITAL SIGNS: Temperature 98.1 degrees, pulse 76, respiratory rate 19, blood pressure 130/62, saturating 95% on 3 L nasal cannula. PHYSICAL EXAMINATION: General: Not in acute distress. HEENT: Oral cavity is moist. Lungs: Air entry bilaterally equal in suprascapular region. Decreased air entry with inspiratory crackles in left infrascapular region with egophony. Mild inspiratory crackles in right infrascapular region as well. Abdomen: Soft, nontender. Active bowel sounds. Extremity: No lower extremities edema. Neurologic: He is alert and oriented x3. LABORATORY DATA: Continues to have leukocytosis, hemoglobin of 12.9, platelet 161,000. Improving BUN and creatinine to 82 and 3.9. Decreasing proBNP. MICROBIOLOGY: Repeat blood cultures are in lab. IMAGING: Chest x-ray today suggests interval slight improvement on the left. ASSESSMENT AND PLAN: 1. Severe sepsis and acute hypoxic respiratory failure due to left lower lobe Streptococcus pyogenes pneumonia and influenza type A and type B on presentation. He is status post Tamiflu treatment. Wean down oxygen as tolerated to maintain saturation more than 92%. Continue intravenous ceftriaxone. Repeat blood cultures have been ordered, follow up results. Continue inhaled bronchodilators. 2. Acute kidney injury due to acute tubular necrosis due to sepsis and hypotension on presentation. He did not have significant hematuria and his complement C3 levels were normal. His kidney function is improving. Nephrology on board. I will continue to monitor BMP. 3. Others. Continue Compazine as needed for hiccups, which is likely related to irritation of diaphragm due to left lower lobe pneumonia, enoxaparin for deep venous thrombosis prophylaxis and omeprazole for stress ulcer prophylaxis. DISPOSITION: I will monitor patient in CVC and inside the hospital for need for intravenous antibiotics, and awaiting further CBC. Plan of care discussed with him. His questions have been answered. cc: Beltran Edouard MD
[2019-12-20] MEDS: TYLENOL PO PRN (11:51)
--- NOTE | 2019-12-20 13:42 | PROVIDER PROGRESS NOTE ---
Progress Note Subjective: he voices exertional shortness of breath. He denies any other complaints. Objective: temperature 98.1, pulse 81, respirations 20, blood pressure 137/79, 02 sat 95% on 4 L nasal cannula. General: ill appearing white male lying in bed in no distress. HEENT: normocephalic, atraumatic, pupils equal and reactive, trachea midline. Skin: warm and dry. Neck: supple, 6cm JVD Cardiovascular: S1S2, Regular rate and rhythm. No murmurs or gallops. Respiratory: clear throughout anteriorly. Accessory muscle use noted Abdomen: soft, nontender and nondistended. Bowel sounds present. : non-inspected Extremities: trace edema to BLE Neurological: alert and oriented to person, place, and time Labs: WBC 23.45, hemoglobin 12.9, hematocrit 39.8, platelet count 161, sodium 135, potassium 4.1, chloride 92, carbon dioxide 28, BUN 82, creatinine 3.9, albumin 2.5. Intake 850 output 1765 Impression: Acute kidney injury. Likely acute tubular necrosis related to Flu A/B and pneumonia. His BUN and Creatinine continue to improve. Adequate urine noted. No need for renal replacement therapy. Blood pressure. Stable. Fluid volume. Euvolemic. Anemia. In target. Electrolytes and Acid-base balance. Stable. Nutrition. Encouraged to eat. Ambulation. PT ordered. Medication review. No changes.
--- NOTE | 2019-12-20 15:55 | PROVIDER PROGRESS NOTE ---
Progress Note Dr. Landis Progress Note/Pulmonary and or critical care Subjective: The patient is lying in bed on NC 3L. He states he is feeling a little bit better than yesterday. He still has some hiccups which is relieved with Compazine. We talked with patients daughter on the way to see patient. Input is appreciated from Dr. Edouard and other teams on the case. Objective: Vital Signs: T 98.1 (no fever in last 24 hours), VA 76, RR 19, BP 130/62 and SaO2 95% on NC 4L. Physical Examination: General: Lying in bed with no acute distress noted. HEENT: Normocephalic. Trachea midline. Mucosa pink and moist. Respiratory: Even and unlabored. Symmetrical excursion. Auscultation reveals improving air entry bilaterally. CVS: Regular rate and rhythm with S1 and S2 appreciated. Abdomen: Soft. Nontender. Bowel sounds present in all 4 quadrants. Extremities: Sequential boots on BLE. No pedal edema. Neuro: A/Ox3. Speech fluent. Follow commands. Weakness present. Labs and Radiology: Laboratory Results 12/19/19 12/19/19 12/20/19 05:35 20:11 04:40 WBC RBC Hgb Hct MCV MCH MCHC RDW Std Deviation Plt Count MPV Immature Gran % (Auto) Neut % (Auto) Lymph % (Auto) Hardeman % (Auto) Eos % (Auto) Baso % (Auto) Immature Gran # (Auto) Neut # (Auto) Lymph # (Auto) Hardeman # (Auto) Eos # (Auto) Baso # (Auto) Segmented Neutrophils Lymphocytes Monocytes Eosinophils Sodium 135 L Potassium 4.1 Chloride 92 L Carbon Dioxide 28 Anion Gap 15 BUN 82 H Creatinine 3.9 H Estimated GFR/1.73 m2 17 BUN/Creatinine Ratio 21 Glucose 111 H POC Glucose 122 H Calculated Osmolality 296 Calcium 7.8 L Phosphorus 4.8 H Magnesium Flf-M-Mexemvxqqcq Pept Albumin 2.5 L Complement C3 SEE COMMENTS 12/20/19 12/20/19 12/20/19 04:40 04:40 04:40 WBC 23.45 H RBC 4.80 Hgb 12.9 L Hct 39.8 L MCV 82.9 MCH 26.9 L MCHC 32.4 L RDW Std Deviation 13.5 Plt Count 161 MPV 10.0 Immature Gran % (Auto) 8.5 H Neut % (Auto) 76.7 H Lymph % (Auto) 8.1 L Hardeman % (Auto) 5.2 Eos % (Auto) 1.0 Baso % (Auto) 0.5 Immature Gran # (Auto) 2.00 H Neut # (Auto) 17.96 H Lymph # (Auto) 1.91 Hardeman # (Auto) 1.22 H Eos # (Auto) 0.24 Baso # (Auto) 0.12 Segmented Neutrophils 85 H Lymphocytes 8 L Monocytes 6 Eosinophils 1 Sodium Potassium Chloride Carbon Dioxide Anion Gap BUN Creatinine Estimated GFR/1.73 m2 BUN/Creatinine Ratio Glucose POC Glucose Calculated Osmolality Calcium Phosphorus Magnesium 2.4 Dqx-B-Yuhhgmhpkhg Pept 4150 H Albumin Complement C3 Assessment: Acute hypoxemic respiratory failure. Influenza A and B. s/p Tamiflu. Streptococus pyogenes bacterial pneumonia with bacteremia. CXR today shows interval slight improved dense infiltrates on the left, otherwise, stable. Acute renal failure with good urine output. Dr. Amin on board. Improving. Prognosis is guarded. Plan: Antibiotic (Ceftriaxone). Bronchodilators. Weaning oxygen as tolerated. Continue GI and DVT prophylaxis. Physical therapy. Encourage routine incentive spirometer use. We discuss patients condition and care plan with patients daughter at the bedside and all questions have been answered. Total evaluation time in minutes: 32.
[2019-12-20] MEDS: LOVENOX SUBQ SCH (17:07)
[2019-12-20] MEDS: COMPAZINE PO PRN (19:06)
[2019-12-21] MEDS: DUONEB (A & A) INH SCH ×4 (03:40→21:40)
[2019-12-21] MEDS: PRILOSEC PO SCH (06:25)
[2019-12-21 06:30] LABS: ALBUMIN 2.9 g/dL (3.5-5.0); CALCIUM 8.4 mg/dL (8.8-10.2); CREATININE 3.5 mg/dL (0.7-1.2); PHOSPHORUS 5.3 mg/dL (2.7-4.5); POTASSIUM 4.8 mmol/L (3.5-5.1)
[2019-12-21] MEDS: ROCEPHIN 2 GM in NS 50 ML IV SCH (08:58)
--- NOTE | 2019-12-21 11:07 | PROGRESS NOTE ---
DATE: 12/21/2019 HISTORY OF PRESENT ILLNESS: Mr. Higgins, a patient of Dr. Ambika Freeman, is a 49-year-old who presented on 12/12/2019. He is a 49-year-old with no significant past medical history who presented to the emergency room complaining of flu-like symptoms for past 3 days. He was actually seen in Urgent Care in [place] [address] on 12/10/2019, was given a dose of Xofluza and a shot of Rocephin and Decadron. Continue to have fever and chills, nausea, vomiting, cough and congestion, dyspnea, and he had a syncopal episode and reported some hemoptysis. ADMISSION DIAGNOSES: 1. Acute respiratory distress with hypoxemia, admitted to the intensive care unit, placed on BiPAP in the emergency room, and received DuoNeb treatments. 2. Aspiration pneumonia to the left lung with sepsis, placed on vancomycin and Zosyn. 3. Influenza A and B. He received a dose of Xofluza, and he did have a negative influenza test at that time. He did go ahead and receive treatment. He does have positive influenza test at this time on this admission. 4. Volume depletion. He was is given quite a bit of fluid intravenously. 5. Acute kidney injury, which showed steady improvement from hydration. 6. Hypomagnesemia. Given 2 grams of magnesium when he came in. The patient states he feels much better. In fact, he is asking about going home. PHYSICAL EXAMINATION: Vital Signs: Temperature 99.4, remains afebrile. Pulse 70, respirations 20, blood pressure 127/64. HEENT: Pupils are equal and round. Lungs: Clear in all lung jenkins. Cardiovascular: Regular rhythm and rate without murmur or S3. Urine Output: 2400 mL. ASSESSMENT AND PLAN: 1. Acute hypoxemic respiratory failure. Patient requiring non-rebreather mask and breathing better, so I need to see where we are with his oxygen. 2. Aspiration pneumonia secondary to Streptococcus pyogenes, and so he is on Zosyn and Zyvox. Sputum culture pending. Continue same management. 3. Influenza A and B positive. He is on Tamiflu by mouth twice a day. 4. Acute kidney injury. Last couple days creatinine has been 3.[address] Amin is monitoring and following. 5. Hyponatremia, resolved. 6. Continue gastrointestinal prophylaxis. Have him on Prilosec 20 mg daily, ceftriaxone 2 grams intravenously every 24 hours. SUMMARY: Continue present treatment on ceftriaxone 2 grams every 24 hours. He looks like he is doing better clinically. We are still trying to wean him off the O2, and Dr. Amin is still following. In regards to his renal function, likely he had acute tubular necrosis related to flu A and B and pneumonia. His BUN and creatinine continue to improve. I do not know that he is ready go home yet. cc: Guzman Bowers MD
[2019-12-21] MEDS: COMPAZINE PO PRN (12:44)
--- NOTE | 2019-12-21 14:29 | NEPHROLOGY PROGRESS NOTE ---
DATE: 12/21/2019 SUBJECTIVE: He is lying in bed. No acute distress. OBJECTIVE: Skin: Warm and dry. HEENT: Conjunctivae are pink. Neck veins are not distended. He is still on oxygen. Cardiovascular: Heart is regular. Lungs: Lungs are equal. No crackles or wheezes anteriorly. Abdomen: Soft, nontender. Bowel sounds present. Extremities: No edema, clubbing or cyanosis. IMPRESSION: Acute kidney injury. Labs are improving daily. Good urine output. If he is otherwise ready for discharge, then we can follow him with weekly labs and office visit within 2 weeks. cc: Rodriguez Amin MD
[2019-12-21] MEDS: LOVENOX SUBQ SCH (17:53)
--- NOTE | 2019-12-21 18:44 | PROVIDER PROGRESS NOTE ---
Progress Note Dr. Landis Progress Note/Pulmonary and or critical care Subjective: The patient is lying in bed on room air. He pulls NC off at this time to take a break as he has soreness on his nose and ears. He states he is feeling some better and ready to go home. He has some dry cough during our encounter. Input is appreciated from Dr. Bowers and other teams on the case. Objective: Vital Signs: T 99.4 (mildly elevated temperature, but no fever in last 24 hours), SD 68, RR 20, BP 127/64 and SaO2 96% on NC 3L. Physical Examination: General: Lying in bed with no acute distress noted. HEENT: Normocephalic. Trachea midline. Mucosa pink and moist. Respiratory: Even and unlabored. Symmetrical excursion. Auscultation reveals improving air entry bilaterally. CVS: Regular rate and rhythm with S1 and S2 appreciated. Abdomen: Soft. Nontender. Bowel sounds present in all 4 quadrants. Extremities: Sequential boots on BLE. No pedal edema. Neuro: A/Ox3. Speech fluent. Follow commands. Weakness present. Labs and Radiology: Laboratory Results 12/21/19 05:30 Sodium 136 Potassium 4.8 D Chloride 94 L Carbon Dioxide 29 Anion Gap 13 BUN 69 H Creatinine 3.5 H Estimated GFR/1.73 m2 19 BUN/Creatinine Ratio 20 Glucose 128 H Calculated Osmolality 294 Calcium 8.4 L Phosphorus 5.3 H Albumin 2.9 L Assessment: Acute hypoxemic respiratory failure. Influenza A and B. s/p Tamiflu. Streptococus pyogenes bacterial pneumonia with bacteremia. Acute renal failure with good urine output. Dr. Amin on board. Improving. Prognosis is guarded. Plan: Antibiotic (Ceftriaxone). Bronchodilators. Weaning oxygen as tolerated. Continue GI and DVT prophylaxis. Physical therapy. Encourage routine incentive spirometer use. Total evaluation time in minutes: 31.
[2019-12-22] MEDS: DUONEB (A & A) INH SCH ×2 (04:04→08:20)
[2019-12-22] MEDS: PRILOSEC PO SCH (06:10)
[2019-12-22 07:21] LABS: CALCIUM 8.6 mg/dL (8.8-10.2); CREATININE 3.4 mg/dL (0.7-1.2); POTASSIUM 5.4 mmol/L (3.5-5.1)
--- NOTE | 2019-12-22 07:25 | Diag Imaging Result Doc PS360 ---
EXAM: CHEST-1 VIEW HISTORY: SOB TECHNIQUE: Single view COMPARISON: 12/20/2019 FINDINGS: The lungs are well expanded. Heart is mildly prominent. There are infiltrates throughout the left lung. The right lung infiltrates are less prominent. The left lung infiltrates are also less pronounced on the current study. No pleural effusions identified. IMPRESSION: Interval improvement Electronically signed by Alfonzo Lopez 12/22/2019 7:23 AM
[2019-12-22 07:37] LABS: BASO# 0.09 X1000 (0.0-0.2); BASO% 0.5 % (0.0-0.8); EOS# 0.28 X1000 (0.0-0.7); EOS% 1.5 % (0.0-10.0); HEMATOCRIT 37.7 % (42.0-52.0); HEMOGLOBIN 11.8 g/dL (14.0-18.0); IMM GRAN# 0.56 X1000 (0.0-0.04); LYMPH# 1.56 X1000 (1.2-3.4); LYMPH% 8.3 % (20.5-51.1); MCH 26.6 PG (27-31); MCHC 31.3 g/dL (33-37); MCV 85.1 FL (81-99); MONO# 1.39 X1000 (0.11-0.59); MONO% 7.4 % (1.7-9.3); MPV 10.1 FL (7.4-10.4); NEUT# 14.82 X1000 (1.4-6.5); NEUT% 79.3 % (42.2-75.2); PLT 274 X1000 (130-400); RBC 4.43 XMIL (4.7-6.1); RDW 13.5 % (11.5-14.5)
[2019-12-22] MEDS: TYLENOL PO PRN (08:27)
[2019-12-22] MEDS: ROCEPHIN 2 GM in NS 50 ML IV SCH (08:28)
--- NOTE | 2019-12-22 10:40 | DISCHARGE SUMMARY ---
ADMISSION DATE: 12/12/2019 DISCHARGE DATE: 12/22/2019 PRIMARY CARE PHYSICIAN: He is followed by Dr. Ambika Gomez although I think he has only seen him one time. HISTORY OF PRESENT ILLNESS: He came in for flu-like symptoms. He is a 49-year-old male, no significant past medical history, presented to the emergency room with complaint of flu- like symptoms for the past 3 days. Patient was actually seen at Urgent Care in [place] on 12/10/2019, was given a dose Xofluza and a shot of Rocephin and Decadron. The patient continued to have fever and chills, malaise, nausea and vomiting, cough, congestion, dyspnea, hemoptysis, lethargy, and syncopal episode. The patient denied any chest pains, palpitations, leg edema, orthopnea, PND, diarrhea, constipation, dysuria, hematuria, neck pain, melena, or any other pertinent symptoms. ADMISSION DIAGNOSES: 1. Acute respiratory distress, hypoxemia. Admitted him to the ICU, was put on BiPAP and given DuoNeb treatments. 2. Concern about aspiration pneumonia, left lung infiltrate. Appeared to be in sepsis. Put him on Zosyn. 3. Influenza A and B tested positive on 12/10/2019. He received a dose of Xofluza. 4. Volume depletion in the face of sepsis. 5. Acute kidney injury. 6. Hypomagnesemia. HOSPITAL COURSE: The patient had a chest x-ray 12/13/2019, dense pneumonia left lower lobe. CT of the chest showed pneumonia, particularly in the left lower lobe. Renal ultrasound done on 12/13/2019, negative exam. Kidneys looked good. Nephrology was asked to see. Concerned about acute tubular necrosis. Renal ultrasound was negative and so felt he had acute kidney injury. Continued to give him fluid. Electrolytes stable. Patient had respiratory acidosis with metabolic acidosis and positive anion gap acidosis. The patient showed improvement, positive blood cultures and he did not need vasopressors, but improved from his hypoxemic respiratory failure and had resolving lactic acidosis. Chest x-rays were followed. Chest x-ray from this morning, interval improvement, lungs are well-expanded, heart mildly prominent. There are infiltrates throughout the left lung. Right lung infiltrates were less prominent. Left lung infiltrates also less prominent. The patient was requesting to go home. Pulmonary has been following along. DISCHARGE DIAGNOSES: 1. Acute hypoxemic respiratory failure. 2. Influenza A and B positive status post Tamiflu. 3. Streptococcus pyogenes bacteremia, pneumonia and bacteremia. 4. Acute renal failure with good urine output, seems to be improving. 5. Acute kidney injury which seems to be improving as well. PLAN: I think we can discharge him home. His Streptococcus group A grew from blood cultures is sensitive to Levaquin. We will put him on 750 mg of Levaquin for another 14 days and he will follow up with his primary care physician. DISCHARGE MEDICATIONS: I think he was not on any home medicine, so it will just be Levaquin 750 mg daily for 14 days. cc: Guzman Bowers MD
[2019-12-22 11:26] VITALS: BP 131/80
== END 2019-12-22 12:00 | disposition home or self-care (01) | DRG 871 ==
LOC: P.ED 07:09 → SUATTDRO 15:27 → EDIPHOLD 15:27 → ICU 20:55 → 2N 12-18 17:13
PROVIDERS: ATTEND Emergency Medicine